=== PATIENT | male | born 1940 | race Caucasian/White ===

== ENCOUNTER 2024-01-03 17:31 | Outpatient (CLI) | payer MEDICARE, BC, MEDICAID, SELFPAY | END 2024-01-03 17:32 | disposition home or self-care (01) | PROVIDERS: Visit Provider Emergency Medicine | DX: R53.1 Weakness (principal) | CPT/HCPCS: A0425; A0429 ==

== ENCOUNTER 2024-01-03 18:04 | Observation (INO) | payer MEDICARE, BC, SELFPAY ==
[2024-01-03] VITALS (24 sets, daily range): BP systolic 140–185; BP diastolic 64–80; PULSE 78–93; RESP 16–20; TEMP 37.4–37.6; O2SAT 89–97; BMI 38.0
--- NOTE | 2024-01-03 18:33 | CRLHL7_ITS ---
For Patients: As a result of the Century Cures Act, medical imaging exams and procedure reports are released immediately into your electronic medical record. You may view this report before your referring provider. If you have questions, please contact your health care provider. INDICATION: Shortness of breath and cough. FINDINGS: There is mild cardiac enlargement. The lungs are clear. The pulmonary vasculature and pleural surfaces appear normal. The bony thorax appears intact. IMPRESSION: Mild cardiac enlargement. Dictated by Griffin Ribera MD @ 01/03/2024 8:30:31 PM (Electronically Signed)
--- NOTE | 2024-01-03 18:33 | CRLHL7_ITS ---
For Patients: As a result of the Century Cures Act, medical imaging exams and procedure reports are released immediately into your electronic medical record. You may view this report before your referring provider. If you have questions, please contact your health care provider. INDICATION: Fall. Weakness. TECHNIQUE: CT head without contrast. COMPARISON: None. FINDINGS: There is dilatation of the lateral and 3rd ventricles, consistent with hydrocephalus. No definite dilatation of the 4th ventricle. Mild ill-defined low-attenuation in the periventricular and subcortical white matter. No CT evidence of acute hemorrhage or infarction. No midline shift. No subdural fluid collection. Intracranial atherosclerosis. CSF density in the posterior fossa may represent normal variation or arachnoid cyst. Bone windows show no acute calvarial fracture. Mild mucosal thickening of the maxillary and ethmoid sinuses. Lobular soft tissue in the right superior lateral extraconal orbit measures approximately 21 x 5 mm on image 22 of series 3. IMPRESSION: 1. No acute intracranial hemorrhage or midline shift. 2. 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 Otherwise, no definite abnormality to suggest cause for this finding on unenhanced CT. 3. Lobular soft tissue lesion in the right superior lateral extraconal orbit. Benign and malignant etiologies such as lymphoma are differential considerations. 4. MRI of the brain without and with contrast is recommended to further evaluate the above findings. Dictated by Khalif Boyd MD @ 01/03/2024 7:17:16 PM Please note that all CT scans at this facility use dose modulation, iterative reconstruction, and/or weight-based dosing when appropriate to reduce radiation dose to as low as reasonably achievable. Dictated by: Khalif Boyd MD @ 01/03/2024 19:17:35 (Electronically Signed)
--- NOTE | 2024-01-03 18:36 | ED_ITS ---
HPI - General Adult General Date Seen: 01/03/24 Chief complaint: Weakness Stated complaint: ambulance Time Seen by Provider: 01/03/24 18:16 History of Present Illness HPI narrative: This is a pleasant 83-year-old gentleman brought to the ER today by EMS for evaluation of a weakness and a ground level fall History from paramedics is that he generally lives independently in an apartment attached to the [address] [place] [address]. It sounds like he normally cares for himself and does not get any assisted living services. They say that [place] was [place] still [place] today. He apparently was getting out of his car and got weak and lowered himself to the ground because his legs were giving out. The they think that the patient did not hit his head when he fell. He had apparently been laying in the parking lot for about 45 minutes until a bystander saw him and called 911 for lift assist. Paramedics note that he was weak but had no focal deficits. He had no complaints. They say that he is alert and oriented x4. Blood sugar was normal. They transported him here to the ER. History from the patient seems little bit limited. He is very pleasant and is oriented to person place and day but seems like an unreliable historian. For instance when I ask him what he had for lunch he has a long thoughtful pause, and then says in a questioning tone of voice, ?ham, I think... Mashed potatoes he is able to tell me that he has arthritis in his knees and is having pain in his legs. Not from falling but has been longstanding. He is also able to tell me that he has trouble with urination that he has been on medicines for years but they do not really help. He is able to tell me that he went to [place] ?to his place? today to visit his brother and his sister. He apparently had lunch at his sister's house. He drove himself from [place] still back to [place]. He got weak getting out of his car. He is also able to tell me that he has had ?a stuffy nose, possibly allergies? for the past few days but can not really say when it started. Probably this weekend but maybe as long goes last weekend. In addition to stuffy nose he has had a bit of a cough. He does not think he has been producing sputum. No chest pain. He does not feel short of breath. He has had no nausea or vomiting. When I asked, he does recall that ?come to think it it, I have been having diarrhea. ? He thinks urination has been at its baseline. It sounds like he has trouble with urinary hesitancy. No rashes. He does not think he hit his head. No headache. He does have a low-grade temperature of 99.4?. He was not aware that he was running a fever.. Related Data Home Medications ?Medication ?Instructions ?Recorded ?Confirmed aspirin 81 mg capsule 81 mg PO DAILY 01/03/24 01/03/24 finasteride 5 mg tablet 5 mg PO DAILY 01/03/24 01/03/24 hydrochlorothiazide 25 mg tablet 25 mg PO DAILY 01/03/24 01/03/24 losartan 100 mg tablet 100 mg PO DAILY 01/03/24 01/03/24 omeprazole 20 mg capsule,delayed 20 mg PO DAILY 01/03/24 01/03/24 release pravastatin 20 mg tablet 20 mg PO DAILY 01/03/24 01/03/24 tamsulosin 0.4 mg capsule 0.8 mg PO DAILY 01/03/24 01/03/24 Previous Rx's ?Medication ?Instructions ?Recorded nirmatrelvir 150 mg-ritonavir 100 See Rx Instructions PO .COMPLEX 01/04/24 mg tablets in a dose pack #20 ea (Paxlovid) Allergies Allergy/AdvReac Type Severity Reaction Status Date / Time No Known Drug Allergies Allergy Verified 01/03/24 18:17 [facility] Medical History (Updated 01/04/24 @ 15:45 by Georges Kathleen MD) CKD (chronic kidney disease) ?N18.9 - Chronic kidney disease, unspecified (ICD-10) 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 ?S68.119A - Complete traumatic metacarpophalangeal amputation of unspecified finger, initial encounter (ICD-10) Primary osteoarthritis of right knee ?M17.11 - Unilateral primary osteoarthritis, right knee (ICD-10) GERD (gastroesophageal reflux disease) ?K21.9 - Gastro-esophageal reflux disease without esophagitis (ICD-10) Hypertension ?I10 - Essential (primary) hypertension (ICD-10) Adenomatous colon polyp ?D12.6 - Benign neoplasm of colon, unspecified (ICD-10) Mixed hyperlipidemia ?E78.2 - Mixed hyperlipidemia (ICD-10) BPH (benign prostatic hyperplasia) ?N40.0 - Benign prostatic hyperplasia without lower urinary tract symptoms (ICD-10) 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, unspecified site (ICD-10) Surgical History (Updated 01/03/24 @ 23:23 by Mellissa Painting MD) Hx of colonoscopy ?Z98.890 - Other specified postprocedural states (ICD-10) Family History (Updated 01/03/24 @ 23:25 by Mellissa Painting MD) Sister Asthma Ischemic bowel disease Mother High blood pressure Father Stroke Social History What is your current living situation?: I presently have a place to live Problems where you live: mold Problems where you live details: Pt reports my sink used to have mold under it but they covered it up with linoleum In the past 12 months, utilities in danger of being shut off: no In past 12 months, lack of transportation kept you from medical appts, meetings, work, or getting things needed for daily living: no In the past 12 mos, have been you worried that your food would run out before you had money to buy more?: never true In the past 12 mos, the food you bought just didn't last and you didn't have money to buy more?: never true Highest level of school completed/degree received: high school graduate Smoking Status: Never smoker Second hand tobacco smoke exposure: Yes How often do you have a drink containing alcohol: never AUDIT-C Alcohol total score: 0 Non-prescribed substance use: denies use Caffeine: Yes (Coffee) How often does anyone, including family, friends and others, physically hurt you : never How often does anyone, including family, friends and others, insult or talk down to you: never How often does anyone, including family, friends and others, threaten you with harm: never How often does anyone, including family, friends and others, scream or curse at you: never service: Yes Exam Narrative: Exam Narrative: Primary Survey: A- patent. Speaking clearly. Phonation normal. No stridor. B- breathing easily. Lung sounds clear and equal. Oxygen saturation normal on room air C- no active bleeding. Blood pressure stable. Symmetric pulses and cap refill in 4 extremities. D- alert and oriented x3, but is not a very detailed historian. Seems a little bit vague about chronology and all of his symptoms.. GCS 15. No focal deficits. Constitutional: Appears well-developed and well-nourished. Alert. Conversant. Generalized weakness. Requires assist of 2 people for him to stand at the bedside and pivot into his bed. HENT: Head: Atraumatic. Nose: Nose normal. Mouth/Throat: Oral mucosa is clear and moist. no trismus. Pharynx normal. Tonsils symmetric. No tonsillar enlargement, erythema, or exudate. Eyes: Conjunctivae normal. EOM normal. Pupils equal, round, and reactive to light. No scleral icterus. Neck: Normal range of motion. Neck supple. No tracheal deviation present. Cardiovascular: Normal rate, regular rhythm. No gallop. No friction rub. No murmur heard. Symmetric radial artery pulses Pulmonary/Chest: Effort normal. No stridor. No respiratory distress. No wheezes. No rales. No rhonchi . No tenderness. Abdominal: Soft. No distension. No mass. No tenderness. No rebound. No guarding. Musculoskeletal: RUE: Normal range of motion. No tenderness. No deformity LUE: Normal range of motion. No tenderness. No deformity RLE: Normal range of motion. No edema. No tenderness. No deformity LLE: Normal range of motion. No edema. No tenderness. No deformity Lymph: No cervical adenopathy. Neurological: Alert and oriented to person, place, and time. Normal strength. CN II-VII intact. No sensory deficit. GCS eye subscore is 4. GCS verbal subscore is 5. GCS motor subscore is 6. Normal coordination Skin: Skin is warm and dry. No rash noted. No pallor. Normal capillary refill. Psychiatric: Normal mood. Normal affect. Const: Vital Signs, click to edit/add: Vital Signs - 24 hr 01/03/24 18:17 01/03/24 18:23 01/03/24 18:30 Temperature 99.4 F Pulse Rate 93 93 Pulse Rate [Pulse Oximeter] 92 Respiratory Rate 16 Blood Pressure Blood Pressure [Ri ght Upper Arm] 160/72 H Pulse Oximetry 96 93 95 Oxygen Delivery Me thod Room Air 01/03/24 18:32 01/03/24 19:07 01/03/24 19:15 Temperature Pulse Rate 92 86 92 Pulse Rate [Pulse Oximeter] Respiratory Rate Blood Pressure 140/66 H Blood Pressure [Ri ght Upper Arm] Pulse Oximetry 94 94 92 Oxygen Delivery Me thod 01/03/24 19:30 01/03/24 19:31 01/03/24 19:51 Temperature Pulse Rate 86 89 82 Pulse Rate [Pulse Oximeter] Respiratory Rate Blood Pressure 145/72 H Blood Pressure [Ri ght Upper Arm] Pulse Oximetry 95 93 96 Oxygen Delivery Me thod 01/03/24 20:00 01/03/24 20:02 01/03/24 20:15 Temperature Pulse Rate 81 80 85 Pulse Rate [Pulse Oximeter] Respiratory Rate Blood Pressure 156/64 H Blood Pressure [Ri ght Upper Arm] Pulse Oximetry 93 92 89 Oxygen Delivery Me thod 01/03/24 20:30 01/03/24 20:32 01/03/24 20:45 Temperature Pulse Rate 83 81 88 Pulse Rate [Pulse Oximeter] Respiratory Rate Blood Pressure 154/69 H Blood Pressure [Ri ght Upper Arm] Pulse Oximetry 91 91 96 Oxygen Delivery Me thod 01/03/24 21:00 01/03/24 21:02 01/03/24 21:15 Temperature Pulse Rate 79 81 78 Pulse Rate [Pulse Oximeter] Respiratory Rate Blood Pressure 172/74 H Blood Pressure [Ri ght Upper Arm] Pulse Oximetry 96 95 94 Oxygen Delivery Me thod 01/03/24 21:42 01/03/24 21:45 01/03/24 22:02 Temperature Pulse Rate 84 89 Pulse Rate [Pulse Oximeter] Respiratory Rate Blood Pressure 185/80 H Blood Pressure [Ri ght Upper Arm] Pulse Oximetry 96 95 Oxygen Delivery Me thod Course Vital Signs Vital signs: Initial Vital Signs Temperature 99.4 F 01/03/24 18:17 Temperature Source Temporal Artery Scan 01/03/24 18:17 Pulse Rate 92 01/03/24 18:17 Respiratory Rate 16 01/03/24 18:17 Blood Pressure 160/72 H 01/03/24 18:17 Blood Pressure Mean 101 01/03/24 18:17 Blood Pressure Position High-Fowlers 01/03/24 18:17 Pulse Oximetry 96 01/03/24 18:17 Oxygen Delivery Method Room Air 01/03/24 18:17 Vital Signs Temperature 99.4 F 01/03/24 18:17 Pulse Rate 92 01/03/24 18:17 Respiratory Rate 16 01/03/24 18:17 Blood Pressure 160/72 H 01/03/24 18:17 Pulse Oximetry 96 01/03/24 18:17 Oxygen Delivery Method Room Air 01/03/24 18:17 Temperature 98.4 F 01/05/24 03:00 Pulse Rate 57 L 01/05/24 03:00 Respiratory Rate 18 01/05/24 03:00 Blood Pressure 149/73 H 01/05/24 03:00 Pulse Oximetry 96 01/05/24 03:00 Oxygen Delivery Method Room Air 01/05/24 03:00 Medications Administered Medications: Generic Name Dose Route Start Last Admin Trade Name Freq PRN Reason Stop Dose Admin Acetaminophen 975 mg 01/03/24 23:05 01/04/24 21:06 Acetaminophen 325 Mg Tablet PO 975 mg Q6H PRN Administration pain or fever Enoxaparin Sodium 40 mg 01/04/24 21:00 01/04/24 21:07 Enoxaparin 40 Mg/0.4 Ml Inj SUBCUT 40 mg HS FELIX Administration Nirmatrelvir/Ritonavir 2 tab 01/04/24 14:00 01/04/24 21:08 Nirmatrelvir/Ritonavir Dosepak PO 01/08/24 21:01 2 tab BID FELIX Administration Sodium Chloride 5 ml 01/04/24 09:00 01/04/24 21:08 Sodium Chloride 0.9 % (Flush) 10 Ml Syringe IVF 5 ml BID FELIX Administration Discontinued Medications Generic Name Dose Route Start Last Admin Trade Name Freq PRN Reason Stop Dose Admin Sodium Chloride 1,000 mls @ 1,000 mls/hr 01/03/24 18:45 01/03/24 20:48 0.9 % Sodium Chloride 1000 Ml IV 01/03/24 19:44 Infused .Q1H FELIX Infusion Lactated Ringer's 1,000 ml 01/03/24 20:00 01/03/24 20:50 Lactated Ringers 1000 Ml IV 01/03/24 20:01 1,000 ml ONCE ONE Administration Medical Decision Making MDM Narrative Medical decision making narrative: This is a pleasant 83-year-old gentleman brought to the ER today by EMS for evaluation of generalized, nonfocal weakness associated with a ground level fall. Patient may also be mildly confused. These are thought to be acute changes because he normally lives alone independently. He was able to drive in his own vehicle up the [place] today to visit his brother. After he got back he was apparently week getting out of his vehicle and fell to the ground. 1. Trauma. Patient says he was weak and does not faint. He does not think he has on the ground. However he does seem mildly confused. Head CT is fortunately negative for any acute traumatic injury. C-spine CT also negative. He is not having any back or spine tenderness, pelvic tenderness or hip tenderness. 2. Neuro. He does seem mildly confused. No focal deficits. Head CT negative. Blood sugar normal. Suspect confusion is probably related to his COVID infection and fever. CT scan does show evidence for hydrocephalus. Unknown if this is acute or chronic, but would suspect chronic. He is not having any headache. He will be admitted to the hospitalist did treat for coronavirus and monitor. If mental status not improving will require neurology/neurosurgery consult for the hydrocephalus. 3. Infectious disease. Patient does have a low-grade fever. Suspect infection as a cause for his weakness and confusion. Urinalysis is normal. Chest x-ray negative for pneumonia. No evidence for skin infection. No abdominal pain to suggest intra-abdominal infection such as appendicitis or cholecystitis. He does have recent cough, nasal congestion. He is positive for coronavirus. We believe his symptoms started about 2 days ago on Thursday which would leave him in the window to start on Paxlovid. Fortunately at this point he is not hypoxic to require steroids for coronavirus. I would like to start the patient on Paxlovid, not seeing any chondral can not indication on my workup so far. However the patient would need a family member to go to the pharmacy to pick it up for him. We attempted to contact his brother Franky, at the listed phone number, but that number is disconnected. Discussed this with the patient. He says he has contact information for his o ther relatives in his cellphone, but he the battery did is dad or the phone was broken in his fall so is not able to get any other information. Nurses will work on getting family contact information for the patient. 4. Cardiac-with his fall consider possible cardiac event. EKG shows normal sinus rhythm. No ischemia. Troponin negative. Unlikely to have been an acute cardiac arrhythmia. 5. ENT. Head CT scan shows a soft tissue mass in the patient's sinus. Will need outpatient ENT follow-up and or further workup inpatient with MR imaging (as per Radiology recommendation) for further evaluation. Patient will be admitted to the hospitalist service, Dr. Painting accepting. Lab Data Labs: Lab Results 01/03/24 01/03/24 Range/Units 19:21 20:27 WBC 10.59 (4.50-11.00) K/uL RBC 3.85 L (4.30-5.90) m/uL Hgb 11.8 L (13.5-17.5) gm/dL Hct 36.5 L (37.0-53.0) % MCV 95 (80-100) fL MCH 31 (26-34) pg MCHC 32 (32-36) gm/dL RDW Coeff of Joyce 13.1 (11.5-15.5) % Plt Count 163 (140-440) K/uL Neut % (Auto) 79.9 H (42.0-72.0) % Lymph % (Auto) 7.8 L (20-44) % [place] % (Auto) 10.9 (0.0-11.0) % Eos % (Auto) 0.8 (0.0-7.0) % Baso % (Auto) 0.2 (0.0-3.0) % Neut # (Auto) 8.50 H (1.7-7.0) K/uL Lymph # (Auto) 0.80 L (0.90-2.90) K/uL [place] # (Auto) 1.20 H (0.00-0.90) K/UL Eos # (Auto) 0.09 (0.00-0.50) K/uL Baso # (Auto) 0.02 (0.00-0.30) K/uL Abs Immat Gran (auto) 0.04 (0.00-0.30) K/uL Imm/Tot Granulo (auto) 0.4 % Sodium 138 (135-149) mmol/L Potassium 4.7 (3.6-5.1) mmol/L Chloride 106 (96-114) mmol/L Carbon Dioxide 26 (20-32) mmol/L Anion Gap 6 L (7-15) mEq/L BUN 29 (7-30) mg/dL Creatinine 1.3 (0.5-1.5) mg/dL Estimated Creat Clear 48.91 Estimated GFR 55 ml/min Glucose 114 (60-115) mg/dL Lactate 1.5 (0.5-1.9) mmol/L Calcium 9.9 (8.4-10.6) mg/dL Troponin I < 0.01 L (0.01-0.04) ng/mL Urine Color Yellow (Yellow) Urine Appearance Clear (Clear) Urine pH 6.5 (5.0-8.5) Ur Specific [place] 1.025 (1.000-1.030) Urine Protein Negative (Negative) Urine Glucose (UA) Negative (Negative) Urine Ketones Negative (Negative) Urine Blood Trace-intact A (Negative) Urine Nitrite Negative (Negative) Urine Bilirubin Negative (Negative) Urine Urobilinogen 1.0 (0.2-1.0) Ur Leukocyte Esterase Negative (Negative) Urine RBC 0-2 (0-2) Urine WBC 0-2 (0-5) Ur Squamous Epith Cells None (None-Few) Urine Bacteria None (None) SARS-CoV-2 (PCR) POSITIVE SARS-CoV-2 A (Negative) Influenza Type A (PCR) Negative PCR FLU A (Negative) Influenza Type B (PCR) Negative PCR FLU B (Negative) RSV (PCR) Negative PCR RSV (Negative) Imaging Data CT scan - head: Attestation: I have reviewed the pertinent imaging results. Radiologist's impression: IMPRESSION: 1. No acute intracranial hemorrhage or midline shift. 2. 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 Otherwise, no definite abnormality to suggest cause for this finding on unenhanced CT. 3. Lobular soft tissue lesion in the right superior lateral extraconal orbit. Benign and malignant etiologies such as lymphoma are differential considerations. 4. MRI of the brain without and with contrast is recommended to further evaluate the above findings. CT C spine: Attestation: I have reviewed the pertinent imaging results. Radiologist's impression: IMPRESSION: 1. No acute fracture or traumatic subluxation of the cervical spine. 2. Multilevel degenerative spondylosis. Chest x-ray: Attestation: I have reviewed the pertinent imaging results. Radiologist's impression: IMPRESSION: Mild cardiac enlargement. ECG Data Attestation: I personally reviewed and interpreted this ECG as follows: Interpretation: Normal sinus rhythm Rate: 82 TN: 186 QRS axis: Normal axis ST segment/T wave: No ST segment elevation or depression. QTc: 397 Discharge Plan Discharge Clinical Impression: COVID-19, Weakness, Fall, Acute upper back pain Patient Disposition: Admitted As Observation
[2024-01-03 19:29] LABS: Lactate* 1.5 mmol/L (0.5-1.9)
[2024-01-03 19:32] LABS: Basophils Absolute Auto 0.02 K/uL (0.00-0.30); Basophils Percent Auto 0.2 % (0.0-3.0); Eosinophils Absolute Auto 0.09 K/uL (0.00-0.50); Eosinophils Percent Auto 0.8 % (0.0-7.0); Hematocrit 36.5 % (37.0-53.0); Hemoglobin* 11.8 gm/dL (13.5-17.5); Immature Granulocytes Abs Auto 0.04 K/uL (0.00-0.30); Immature Granulocytes Pct Auto 0.4 %; Lymphocytes Percent Auto 7.8 % (20-44); Mean Corpuscular HGB Conc 32 gm/dL (32-36); Mean Corpuscular Hemoglobin 31 pg (26-34); Mean Corpuscular Volume 95 fL (80-100); Monocytes Percent Auto 10.9 % (0.0-11.0); Neutrophils Percent Auto 79.9 % (42.0-72.0); Platelet Count* 163 K/uL (140-440); RDW Coefficient of Variation % 13.1 % (11.5-15.5); Red Blood Count 3.85 m/uL (4.30-5.90); White Blood Count* 10.59 K/uL (4.50-11.00)
[2024-01-03] MEDS: 0.9 % SODIUM CHLORIDE 1000 ml 1,000 ML IV (19:39)
[2024-01-03 19:40] LABS: Slide Review Reflex No
[2024-01-03 19:44] LABS: Chloride* 106 mmol/L (96-114); Potassium* 4.7 mmol/L (3.6-5.1); Sodium* 138 mmol/L (135-149)
[2024-01-03 19:47] LABS: Anion Gap 6 mEq/L (7-15); Blood Urea Nitrogen* 29 mg/dL (7-30); Carbon Dioxide* 26 mmol/L (20-32); Creatinine* 1.3 mg/dL (0.5-1.5); Est. Creatinine Clearance* 48.91; Estimated Glomerular Filt Rate 55 ml/min; Glucose* 114 mg/dL (60-115)
[2024-01-03 19:48] LABS: Calcium* 9.9 mg/dL (8.4-10.6)
[2024-01-03 20:01] LABS: Troponin I* < 0.01 ng/mL (0.01-0.04)
[2024-01-03 20:12] LABS: PCR FLU A Negative PCR FLU A (Negative); PCR FLU B Negative PCR FLU B (Negative); PCR RSV Negative PCR RSV (Negative); SARS PCR* POSITIVE SARS-CoV-2 (Negative)
[2024-01-03 20:35] LABS: Appearance Urine Clear (Clear); Bilirubin Urine Negative (Negative); Blood Urine Trace-intact (Negative); Color Urine Yellow (Yellow); Glucose Urine Negative (Negative); Ketones Urine Negative (Negative); Leukocyte Esterase Urine Negative (Negative); Nitrite Urine Negative (Negative); Protein Urine Negative (Negative); Specific Gravity Urine 1.025 (1.000-1.030); pH Urine 6.5 (5.0-8.5)
[2024-01-03] MEDS: LACTATED RINGERS 1000 ML IV (20:50)
--- NOTE | 2024-01-03 20:58 | CRLHL7_ITS ---
For Patients: As a result of the Cures Act, medical imaging exams and procedure reports are released immediately into your electronic medical record. You may view this report before your referring provider. If you have questions, please contact your health care provider. INDICATION: Trauma, fall. Neck pain. TECHNIQUE: CT cervical spine without contrast. COMPARISON: None. FINDINGS: Vertebrae: Straightening of the normal cervical lordosis, which may be due to muscle spasm or positioning. There are no fractures or suspicious bony lesions. Discs and facet joints: There are diffuse degenerative changes in the disc spaces and facet joints. Extraspinal findings: Paraspinous soft tissues are unremarkable. IMPRESSION: 1. No acute fracture or traumatic subluxation of the cervical spine. 2. Multilevel degenerative spondylosis. Please note that all CT scans at this facility use dose modulation, iterative reconstruction, and/or weight-based dosing when appropriate to reduce radiation dose to as low as reasonably achievable. Dictated by Jovon Camargo MD @ 01/03/2024 9:52:54 PM (Electronically Signed)
[2024-01-03 21:29] LABS: RBC Urine 0-2 (0-2); WBC Urine 0-2 (0-5)
--- NOTE | 2024-01-03 22:51 | PM.IMHP1 ---
Hospitalist- H&P: HPI History of Present Illness Time Seen by Provider: 22:53 Date Seen: 01/03/24 Chief complaint: ambulance Narrative: Aidan Singh is a 83 year old male who lives independently at [address] [facility] [address] and has a history of hypertension, chronic kidney disease stage 3, and hyperlipidemia who felt weak getting out of his car and lowered himself to the ground and was unable to get up. Overnight he did not sleep very well and had a very runny nose. Today he has felt very tired and fatigued, which he attributed to not sleeping well last night. He also started coughing today. He and his brother went to visit their sister who is currently at [facility]. We earlier this afternoon and then he drove himself back home. When he got to the [place] his apartment he felt very weak getting out of the car and started to falls, so he gently lowered himself to the ground. He denies any loss of consciousness the, head or neck trauma. He laid on the pavement for a little while until someone was passing by and he got their attention. He got a liter of IV fluids in the emergency department and his COVID swab was positive. Denies loss of appetite, fever, headache, body aches, sore throat, shortness breath or chest pain. He denies any sick contacts. 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 ?S68.119A - Complete traumatic metacarpophalangeal amputation of unspecified finger, initial encounter (ICD-10) Primary osteoarthritis of right knee ?M17.11 - Unilateral primary osteoarthritis, right knee (ICD-10) GERD (gastroesophageal reflux disease) ?K21.9 - Gastro-esophageal reflux disease without esophagitis (ICD-10) Hypertension ?I10 - Essential (primary) hypertension (ICD-10) Adenomatous colon polyp ?D12.6 - Benign neoplasm of colon, unspecified (ICD-10) Mixed hyperlipidemia ?E78.2 - Mixed hyperlipidemia (ICD-10) BPH (benign prostatic hyperplasia) ?N40.0 - Benign prostatic hyperplasia without lower urinary tract symptoms (ICD-10) 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, unspecified site (ICD-10) Surgical History (Updated 01/03/24 @ 23:23 by Mellissa Painting MD) Hx of colonoscopy ?Z98.890 - Other specified postprocedural states (ICD-10) Family History (Updated 01/03/24 @ 23:25 by Mellissa Painting MD) Sister Asthma Ischemic bowel disease Mother High blood pressure Father Stroke Social History What is your current living situation?: I presently have a place to live Problems where you live: mold Problems where you live details: Pt reports my sink used to have mold under it but they covered it up with linoleum In the past 12 months, utilities in danger of being shut off: no In past 12 months, lack of transportation kept you from medical appts, meetings, work, or getting things needed for daily living: no In the past 12 mos, have been you worried that your food would run out before you had money to buy more?: never true In the past 12 mos, the food you bought just didn't last and you didn't have money to buy more?: never true Highest level of school completed/degree received: high school graduate Smoking Status: Never smoker Second hand tobacco smoke exposure: Yes How often do you have a drink containing alcohol: never AUDIT-C Alcohol total score: 0 Non-prescribed substance use: denies use Caffeine: Yes (Coffee) How often does anyone, including family, friends and others, physically hurt you: never How often does anyone, including family, friends and others, insult or talk down to you: never How often does anyone, including family, friends and others, threaten you with harm: never How often does anyone, including family, friends and others, scream or curse at you: never service: Yes Meds Home Medications and Allergies Home Medications ?Medication ?Instructions ?Recorded ?Confirmed ?Type aspirin 81 mg capsule 81 mg PO DAILY 01/03/24 01/03/24 History finasteride 5 mg tablet 5 mg PO DAILY 01/03/24 01/03/24 History hydrochlorothiazide 25 mg tablet 25 mg PO DAILY 01/03/24 01/03/24 History losartan 100 mg tablet 100 mg PO DAILY 01/03/24 01/03/24 History omeprazole 20 mg capsule,delayed 20 mg PO DAILY 01/03/24 01/03/24 History release pravastatin 20 mg tablet 20 mg PO DAILY 01/03/24 01/03/24 History tamsulosin 0.4 mg capsule 0.8 mg PO DAILY 01/03/24 01/03/24 History Allergies Allergy/AdvReac Type Severity Reaction Status Date / Time No Known Drug Allergies Allergy Verified 01/03/24 18:17 Exam Narrative: Exam Narrative: General: No acute distress. Awake alert oriented x3. HEENT: Normocephalic atraumatic, pupils equally round and reactive to light and accommodation. Oropharynx clear. Mucous membranes are moist. No cervical lymphadenopathy, thyromegaly or carotid bruits. No JVD. Cardiovascular: Regular rate and rhythm. No murmurs, gallops, or rubs. Chest: No increased work of breathing. Clear to auscultation bilaterally. No crackles or wheezes. Abdomen: Bowel sounds present. Soft, nondistended, nontender. No hepatosplenomegaly or masses. Extremities: No edema, no cyanosis or clubbing. Skin: Slightly flushed in the face. No jaundice, no pallor, no rashes. Neuro: There are no focal deficits. Romberg is negative. No facial asymmetry. Tongue is midline. Vision is grossly intact. Strength is 5/5 in all 4 extremities. Const: Vital Signs, click to edit/add: Vital Signs - 24 hr 01/03/24 18:17 01/03/24 18:23 01/03/24 18:30 Temperature 99.4 F Pulse Rate 93 93 Pulse Rate [Left P ulse Oximeter] Pulse Rate [Pulse Oximeter] 92 Respiratory Rate 16 Blood Pressure Blood Pressure [Le ft Arm] Blood Pressure [Ri ght Upper Arm] 160/72 H Pulse Oximetry 96 93 95 Oxygen Delivery Me thod Room Air 01/03/24 18:32 01/03/24 19:07 01/03/24 19:15 Temperature Pulse Rate 92 86 92 Pulse Rate [Left P ulse Oximeter] Pulse Rate [Pulse Oximeter] Respiratory Rate Blood Pressure 140/66 H Blood Pressure [Le ft Arm] Blood Pressure [Ri ght Upper Arm] Pulse Oximetry 94 94 92 Oxygen Delivery Me thod 01/03/24 19:30 01/03/24 19:31 01/03/24 19:51 Temperature Pulse Rate 86 89 82 Pulse Rate [Left P ulse Oximeter] Pulse Rate [Pulse Oximeter] Respiratory Rate Blood Pressure 145/72 H Blood Pressure [Le ft Arm] Blood Pressure [Ri ght Upper Arm] Pulse Oximetry 95 93 96 Oxygen Delivery Me thod 01/03/24 20:00 01/03/24 20:02 01/03/24 20:15 Temperature Pulse Rate 81 80 85 Pulse Rate [Left P ulse Oximeter] Pulse Rate [Pulse Oximeter] Respiratory Rate Blood Pressure 156/64 H Blood Pressure [Le ft Arm] Blood Pressure [Ri ght Upper Arm] Pulse Oximetry 93 92 89 Oxygen Delivery Me thod 01/03/24 20:30 01/03/24 20:32 01/03/24 20:45 Temperature Pulse Rate 83 81 88 Pulse Rate [Left P ulse Oximeter] Pulse Rate [Pulse Oximeter] Respiratory Rate Blood Pressure 154/69 H Blood Pressure [Le ft Arm] Blood Pressure [Ri ght Upper Arm] Pulse Oximetry 91 91 96 Oxygen Delivery Me thod 01/03/24 21:00 01/03/24 21:02 01/03/24 21:15 Temperature Pulse Rate 79 81 78 Pulse Rate [Left P ulse Oximeter] Pulse Rate [Pulse Oximeter] Respiratory Rate Blood Pressure 172/74 H Blood Pressure [Le ft Arm] Blood Pressure [Ri ght Upper Arm] Pulse Oximetry 96 95 94 Oxygen Delivery Me thod 01/03/24 21:42 01/03/24 21:45 01/03/24 22:02 Temperature Pulse Rate 84 89 Pulse Rate [Left P ulse Oximeter] Pulse Rate [Pulse Oximeter] Respiratory Rate Blood Pressure 185/80 H Blood Pressure [Le ft Arm] Blood Pressure [Ri ght Upper Arm] Pulse Oximetry 96 95 Oxygen Delivery Me thod 01/03/24 22:30 Temperature 99.7 F H Pulse Rate Pulse Rate [Left P ulse Oximeter] 85 Pulse Rate [Pulse Oximeter] Respiratory Rate 20 Blood Pressure Blood Pressure [Le ft Arm] 150/79 H Blood Pressure [Ri ght Upper Arm] Pulse Oximetry 97 Oxygen Delivery Me thod Room Air Hospitalist - H&P: Result Labs Labs: Short CBC 01/03/24 Range/Units 19:21 WBC 10.59 (4.50-11.00) K/uL Hgb 11.8 L (13.5-17.5) gm/dL Hct 36.5 L (37.0-53.0) % Plt Count 163 (140-440) K/uL BMP 01/03/24 19:21 Sodium 138 Potassium 4.7 Chloride 106 Carbon Dioxide 26 BUN 29 Creatinine 1.3 Glucose 114 Calcium 9.9 Cardiac Enzymes 01/03/24 Range/Units 19:21 Troponin I < 0.01 L (0.01-0.04) ng/mL Urine 01/03/24 Range/Units 20:27 Urine Color Yellow (Yellow) Urine Appearance Clear (Clear) Urine pH 6.5 (5.0-8.5) Ur Specific [place] 1.025 (1.000-1.030) Urine Protein Negative (Negative) Urine Glucose (UA) Negative (Negative) 01/03/2024 EKG: Normal sinus rhythm, 82 beats per minute, normal EKG. Ordering Physician: Neal Jay M.D. Date of Service: 01/03/24 Procedure(s): XR chest 2V Accession Number(s): [id number] cc: Neal Jay M.D.; Provider,Not a Local~ For Patients: As a result of the Cures Act, medical imaging exams and procedure reports are released immediately into your electronic medical record. You may view this report before your referring provider. If you have questions, please contact your health care provider. INDICATION: Shortness of breath and cough. FINDINGS: There is mild cardiac enlargement. The lungs are clear. The pulmonary vasculature and pleural surfaces appear normal. The bony thorax appears intact. IMPRESSION: Mild cardiac enlargement. Dictated by Griffin Ribera MD @ 01/03/2024 8:30:31 PM (Electronically Signed) Ordering Physician: Neal Jay M.D. Date of Service: 01/03/24 Procedure(s): CT head/brain wo con Accession Number(s): [id number] cc: Neal Jay M.D.; Provider,Not a Local~ For Patients: As a result of the Cures Act, medical imaging exams and procedure reports are released immediately into your electronic medical record. You may view this report before your referring provider. If you have questions, please contact your health care provider. INDICATION: Fall. Weakness. TECHNIQUE: CT head without contrast. COMPARISON: None. FINDINGS: There is dilatation of the lateral and 3rd ventricles, consistent with hydrocephalus. No definite dilatation of the 4th ventricle. Mild ill-defined low-attenuation in the periventricular and subcortical white matter. No CT evidence of acute hemorrhage or infarction. No midline shift. No subdural fluid collection. Intracranial atherosclerosis. CSF density in the posterior fossa may represent normal variation or arachnoid cyst. Bone windows show no acute calvarial fracture. Mild mucosal thickening of the maxillary and ethmoid sinuses. Lobular soft tissue in the right superior lateral extraconal orbit measures approximately 21 x 5 mm on image 22 of series 3. IMPRESSION: 1. No acute intracranial hemorrhage or midline shift. 2. 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 Otherwise, no definite abnormality to suggest cause for this finding on unenhanced CT. 3. Lobular soft tissue lesion in the right superior lateral extraconal orbit. Benign and malignant etiologies such as lymphoma are differential considerations. 4. MRI of the brain without and with contrast is recommended to further evaluate the above findings. Dictated by Khalif Boyd MD @ 01/03/2024 7:17:16 PM Please note that all CT scans at this facility use dose modulation, iterative reconstruction, and/or weight-based dosing when appropriate to reduce radiation dose to as low as reasonably achievable. Dictated by: Khalif Boyd MD @ 01/03/2024 19:17:35 (Electronically Signed) Ordering Physician: Neal Jay M.D. Date of Service: 01/03/24 Procedure(s): CT cervical spine wo con Accession Number(s): [id number] cc: Neal Jay M.D.; Provider,Not a Local~ For Patients: As a result of the 21st Century Cures Act, medical imaging exams and procedure reports are released immediately into your electronic medical record. You may view this report before your referring provider. If you have questions, please contact your health care provider. INDICATION: Trauma, fall. Neck pain. TECHNIQUE: CT cervical spine without contrast. COMPARISON: None. FINDINGS: Vertebrae: Straightening of the normal cervical lordosis, which may be due to muscle spasm or positioning. There are no fractures or suspicious bony lesions. Discs and facet joints: There are diffuse degenerative changes in the disc spaces and facet joints. Extraspinal findings: Paraspinous soft tissues are unremarkable. IMPRESSION: 1. No acute fracture or traumatic subluxation of the cervical spine. 2. Multilevel degenerative spondylosis. Please note that all CT scans at this facility use dose modulation, iterative reconstruction, and/or weight-based dosing when appropriate to reduce radiation dose to as low as reasonably achievable. Dictated by Jovon Camargo MD @ 01/03/2024 9:52:54 PM (Electronically Signed) Assessment and Plan Assessment and plan (1) COVID-19: Problem comment: - Date of onset unclear. Patient told ER he has had cough for 3-5 days, but he tells me all his symptoms started this afternoon. - Denies sick contacts, but visited his sister at [facility] today while ill, before he knew he had covid. - patient is aware that we do not have Paxlovid in our pharmacy and said his brother can pick it up for him at an outpatient pharmacy and bring it here. We have been unable to get a hold of his brother, Franky. Staff will attempt again in the morning. - No SOB or hypoxia. No need for steroids at this time. Status: Acute (2) Weakness: Problem comment: - Secondary to Covid - PT and OT to evaluate - Lives independently, alone Status: Acute (3) Fall: Problem comment: - Not painful at present. CT head, cspine negative for traumatic findings Status: Acute (4) CKD (chronic kidney disease): Problem comment: - stage 3, baseline Cr 1.1-1.2 - Patient got IVF in the ER. Recheck Cr in am. Status: Chronic (5) Hypertension: Problem comment: - Continue HCTZ, losartan Status: Chronic (6) Brain lesion: Problem comment: 01/03/24 CT head: lobular soft tissue lesion in the right superior lateral extraconal orbit. Benign and malignant etiologies such as lymphoma are differential considerations. MRI of the brain without and with contrast is recommended to further evaluate the above findings. 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 Otherwise, no definite abnormality to suggest cause for this finding on unenhanced CT. MRI of the brain without and with contrast is recommended to further evaluate the above findings. Status: Acute
[2024-01-04] VITALS (8 sets, daily range): BP systolic 128–178; BP diastolic 54–72; PULSE 62–72; RESP 18–20; TEMP 36.6–37.6; O2SAT 93–98
[2024-01-04] MEDS: ACETAMINOPHEN 325 MG TABLET 975 MG PO ×4 (00:08→21:06)
[2024-01-04 06:26] LABS: Basophils Absolute Auto 0.01 K/uL (0.00-0.30); Basophils Percent Auto 0.1 % (0.0-3.0); Eosinophils Absolute Auto 0.12 K/uL (0.00-0.50); Eosinophils Percent Auto 1.4 % (0.0-7.0); Hematocrit 34.9 % (37.0-53.0); Hemoglobin* 11.4 gm/dL (13.5-17.5); Immature Granulocytes Abs Auto 0.04 K/uL (0.00-0.30); Immature Granulocytes Pct Auto 0.5 %; Mean Corpuscular HGB Conc 33 gm/dL (32-36); Mean Corpuscular Hemoglobin 31 pg (26-34); Mean Corpuscular Volume 94 fL (80-100); Monocytes Percent Auto 13.4 % (0.0-11.0); Neutrophils Absolute Auto 5.82 K/uL (1.7-7.0); Neutrophils Percent Auto 69.6 % (42.0-72.0); Platelet Count* 150 K/uL (140-440); White Blood Count* 8.36 K/uL (4.50-11.00)
[2024-01-04 06:27] LABS: Slide Review Reflex No
[2024-01-04 06:37] LABS: Chloride* 106 mmol/L (96-114); Sodium* 137 mmol/L (135-149)
[2024-01-04 06:40] LABS: Anion Gap 6 mEq/L (7-15); Blood Urea Nitrogen* 23 mg/dL (7-30); Carbon Dioxide* 25 mmol/L (20-32); Creatinine* 1.1 mg/dL (0.5-1.5); Est. Creatinine Clearance* 57.81; Estimated Glomerular Filt Rate 67 ml/min; Glucose* 102 mg/dL (60-115)
[2024-01-04 06:41] LABS: Calcium* 9.7 mg/dL (8.4-10.6)
--- NOTE | 2024-01-04 06:41 | PC.NURSE ---
End of shift note: Pt noted to be alert & oriented x 4 upon assessment. PERRLA. IV in place to L AC and SL. Per ED, pt unable to ambulate and requires assist of 2-3 with pivot transferring. Unable to obtain bed weight as bed scale not working and pt unable to safely use standing scale due to weakness. Pt noted to have temp of 99.7 upon admission to med/surg unit. He was given PRN Tylenol to help reduce temp as well as treat c/o 6/10 back pain after pt?s fall being down for 45 minutes yesterday prior to arrival to ED. University Controller attempted to call pt?s brother Franky to provide update that pt has been admitted to hospital and request that Franky provide supply of Paxlovid from pharmacy on 01/03 though phone number on file noted to be disconnected when called. External catheter used overnight as pt is noted to have urinary frequency, incontinence and dribbling which was also noted by ED RN. Pt refused to have catheter placed in ED per ED RN report. Pt noted to have productive cough with clear sputum noted. He is also noted to have runny nose and nasal congestion. Pt has been on RA throughout the shift. He required assist of 4 staff to move from ED stretcher to bed. He is noted to be missing distal tip of his middle finger of L hand. Pt able to roll side to side in bed with some staff assistance. He reports he uses a walker with transferring/ambulation at baseline. Call light within reach.
[2024-01-04] MEDS: SODIUM CHLORIDE 0.9 % (FLUSH) 10 ML SYRINGE 5 ML IVF ×3 (08:54→21:08)
--- NOTE | 2024-01-04 12:36 | PC.SOCIAL ---
Received a call back from 3 [facility] retention manager and the only contact they have for pt. is his brother Franky at [phone]. Updated the charge nurse on the contact.
[2024-01-04] MEDS: NIRMATRELVIR/RITONAVIR DOSEPAK 2 TAB PO ×2 (14:31→21:08)
--- NOTE | 2024-01-04 15:07 | PC.NURSE ---
End of shift [id number]: Pt has been A&O, afebrile and VSS throughout the day. T-max 99.2. He is Ax1 with gait belt & rolling walker. Pt c/o chronic back pain which PRN Tylenol was given @1310 & provided adequate relief. Pt was attached to external male catheter this morning but has since been continent of B&B after this was removed. He denies any nausea or dizziness, tolerating a regular diet with adequate PO intake. PIV in left AC SL and C/D/I. Pt started on Paxlovid this afternoon. His brother, Franky, visited him for a short time this afternoon.
--- NOTE | 2024-01-04 15:39 | PM.IMPN1 ---
Progress Note: A&P Assessment and plan (1) COVID-19: Problem details: Uncertain onset of COVID infection probably 1 to 3 days prior to admission. Not hypoxic. Brother will bring in Paxlovid renal dose. Hold simvastatin and tamsulosin on Paxlovid and for 5 days afterwards Status: Acute (2) Weakness: Problem details: - Secondary to Covid - PT and OT to evaluate - Lives independently, alone Status: Acute (3) Fall: Problem details: No obvious serious injury. Reports some midthoracic pain today. He tells me this has been chronic prior to his fall. Status: Acute (4) CKD (chronic kidney disease): Problem details: - stage 3, baseline Cr 1.1-1.2 - Patient got IVF in the ER. Recheck Cr in am. Status: Chronic (5) Hypertension: Problem details: - Continue losartan at reduced dose. Resume normal blood pressure medicine when blood pressure improved and eating well. Status: Chronic (6) Brain lesion: Problem details: 01/03/24 CT head: lobular soft tissue lesion in the right superior lateral extraconal orbit. Benign and malignant etiologies such as lymphoma are differential considerations. MRI of the brain without and with contrast is recommended to further evaluate the above findings. 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 Otherwise, no definite abnormality to suggest cause for this finding on unenhanced CT. MRI of the brain without and with contrast is recommended to further evaluate the above findings. Status: Acute Plan Continue in-hospital for supportive cares pending resolution of COVID illness with associated weakness and disability. Time Spent With Patient Total time spent: Total time spent today is 55 minutes in evaluation management discussing with patient management of COVID and disability and abnormal imaging findings Subjective Date Seen: 01/04/24 Interval history: Aidan Singh is a 83 year old male who lives independently at [address] [facility] apartments and has a history of hypertension, chronic kidney disease stage 3, and hyperlipidemia who felt weak getting out of his car and lowered himself to the ground and was unable to get up. Overnight he did not sleep very well and had a very runny nose. Today he has felt very tired and fatigued, which he attributed to not sleeping well last night. He also started coughing today. He and his brother went to visit their sister who is currently at [facility]. We earlier this afternoon and then he drove himself back home. When he got to the [place] his apartment he felt very weak getting out of the car and started to falls, so he gently lowered himself to the ground. He denies any loss of consciousness the, head or neck trauma. He laid on the pavement for a little while until someone was passing by and he got their attention. He got a liter of IV fluids in the emergency department and his COVID swab was positive. Denies loss of appetite, fever, headache, body aches, sore throat, shortness breath or chest pain. He denies any sick contacts. January 03: Patient reports feeling significantly better today. He feels a little stronger. He reports his fever appears to be gone. Still has some cough and congestion. No shortness of breath. His appetite is improved and he is beginning to eat. Exam Narrative: Exam Narrative: He is alert and appears in no distress. He gives his own history with fairly good detail. Eyes normal. Oropharynx normal. Neck is supple without mass or adenopathy. Respirations are clear to auscultation. Cardiovascular: S1, S2, regular rate and rhythm. No murmur gallop or rub. Abdomen: Bowel sounds active. Abdomen is soft without tenderness or mass. Extremities without edema. Const: Vital Signs, click to edit/add: Vital Signs - 24 hr 01/03/24 18:17 01/03/24 18:23 01/03/24 18:30 Temperature 99.4 F Pulse Rate 93 93 Pulse Rate [Left P ulse Oximeter] Pulse Rate [Pulse Oximeter] 92 Respiratory Rate 16 Blood Pressure Blood Pressure [Le ft Arm] Blood Pressure [Ri ght Arm] Blood Pressure [Ri ght Upper Arm] 160/72 H Pulse Oximetry 96 93 95 Oxygen Delivery Me thod Room Air 01/03/24 18:32 01/03/24 19:07 01/03/24 19:15 Temperature Pulse Rate 92 86 92 Pulse Rate [Left P ulse Oximeter] Pulse Rate [Pulse Oximeter] Respiratory Rate Blood Pressure 140/66 H Blood Pressure [Le ft Arm] Blood Pressure [Ri ght Arm] Blood Pressure [Ri ght Upper Arm] Pulse Oximetry 94 94 92 Oxygen Delivery Me thod 01/03/24 19:30 01/03/24 19:31 01/03/24 19:51 Temperature Pulse Rate 86 89 82 Pulse Rate [Left P ulse Oximeter] Pulse Rate [Pulse Oximeter] Respiratory Rate Blood Pressure 145/72 H Blood Pressure [Le ft Arm] Blood Pressure [Ri ght Arm] Blood Pressure [Ri ght Upper Arm] Pulse Oximetry 95 93 96 Oxygen Delivery Ar thod 01/03/24 20:00 01/03/24 20:02 01/03/24 20:15 Temperature Pulse Rate 81 80 85 Pulse Rate [Left P ulse Oximeter] Pulse Rate [Pulse Oximeter] Respiratory Rate Blood Pressure 156/64 H Blood Pressure [Le ft Arm] Blood Pressure [Ri ght Arm] Blood Pressure [Ri ght Upper Arm] Pulse Oximetry 93 92 89 Oxygen Delivery Ar thod 01/03/24 20:30 01/03/24 20:32 01/03/24 20:45 Temperature Pulse Rate 83 81 88 Pulse Rate [Left P ulse Oximeter] Pulse Rate [Pulse Oximeter] Respiratory Rate Blood Pressure 154/69 H Blood Pressure [Le ft Arm] Blood Pressure [Ri ght Arm] Blood Pressure [Ri ght Upper Arm] Pulse Oximetry 91 91 96 Oxygen Delivery Ar thod 01/03/24 21:00 01/03/24 21:02 01/03/24 21:15 Temperature Pulse Rate 79 81 78 Pulse Rate [Left P ulse Oximeter] Pulse Rate [Pulse Oximeter] Respiratory Rate Blood Pressure 172/74 H Blood Pressure [Le ft Arm] Blood Pressure [Ri ght Arm] Blood Pressure [Ri ght Upper Arm] Pulse Oximetry 96 95 94 Oxygen Delivery Ar thod 01/03/24 21:42 01/03/24 21:45 01/03/24 22:02 Temperature Pulse Rate 84 89 Pulse Rate [Left P ulse Oximeter] Pulse Rate [Pulse Oximeter] Respiratory Rate Blood Pressure 185/80 H Blood Pressure [Le ft Arm] Blood Pressure [Ri ght Arm] Blood Pressure [Ri ght Upper Arm] Pulse Oximetry 96 95 Oxygen Delivery Ar thod 01/03/24 22:30 01/03/24 22:30 01/03/24 23:00 Temperature 99.7 F H Pulse Rate Pulse Rate [Left P ulse Oximeter] 85 85 Pulse Rate [Pulse Oximeter] Respiratory Rate 20 20 20 Blood Pressure Blood Pressure [Le ft Arm] 150/79 H Blood Pressure [Ri ght Arm] Blood Pressure [Ri ght Upper Arm] Pulse Oximetry 97 97 Oxygen Delivery Me thod Room Air Room Air 01/03/24 23:05 01/04/24 00:08 01/04/24 03:00 Temperature 99.7 F H 98.9 F Pulse Rate Pulse Rate [Left P ulse Oximeter] 71 Pulse Rate [Pulse Oximeter] Respiratory Rate 20 Blood Pressure Blood Pressure [Le ft Arm] 157/72 H Blood Pressure [Ri ght Arm] Blood Pressure [Ri ght Upper Arm] Pulse Oximetry 97 94 Oxygen Delivery Me thod Room Air 01/04/24 07:00 01/04/24 07:00 01/04/24 07:00 Temperature 99.2 F Pulse Rate Pulse Rate [Left P ulse Oximeter] 66 66 Pulse Rate [Pulse Oximeter] Respiratory Rate 18 20 20 Blood Pressure Blood Pressure [Le ft Arm] Blood Pressure [Ri ght Arm] 133/54 L Blood Pressure [Ri ght Upper Arm] Pulse Oximetry 96 96 Oxygen Delivery Me thod Room Air Room Air 01/04/24 11:00 Temperature 98 F Pulse Rate Pulse Rate [Left P ulse Oximeter] 66 Pulse Rate [Pulse Oximeter] Respiratory Rate 18 Blood Pressure Blood Pressure [Le ft Arm] Blood Pressure [Ri ght Arm] 136/58 L Blood Pressure [Ri ght Upper Arm] Pulse Oximetry 98 Oxygen Delivery Me thod Room Air Documenting provider has reviewed patient's vital signs: yes Labs Labs: Laboratory Results - last 24 hr 01/03/24 01/03/24 01/04/24 19:21 20:27 06:06 WBC 10.59 8.36 RBC 3.85 L 3.70 L Hgb 11.8 L 11.4 L Hct 36.5 L 34.9 L MCV 95 94 MCH 31 31 MCHC 32 33 RDW Coeff of Joyce 13.1 13.0 Plt Count 163 150 Neut % (Auto) 79.9 H 69.6 Lymph % (Auto) 7.8 L 15.0 L Rice % (Auto) 10.9 13.4 H Eos % (Auto) 0.8 1.4 Baso % (Auto) 0.2 0.1 Neut # (Auto) 8.50 H 5.82 Lymph # (Auto) 0.80 L 1.30 Rice # (Auto) 1.20 H 1.10 H Eos # (Auto) 0.09 0.12 Baso # (Auto) 0.02 0.01 Abs Immat Gran (auto) 0.04 0.04 Imm/Tot Granulo (auto) 0.4 0.5 Sodium 138 137 Potassium 4.7 4.0 Chloride 106 106 Carbon Dioxide 26 25 Anion Gap 6 L 6 L BUN 29 23 Creatinine 1.3 1.1 Estimated Creat Clear 48.91 57.81 Estimated GFR 55 67 Glucose 114 102 Lactate 1.5 Calcium 9.9 9.7 Troponin I < 0.01 L Urine Color Yellow Urine Appearance Clear Urine pH 6.5 Ur Specific [place] 1.025 Urine Protein Negative Urine Glucose (UA) Negative Urine Ketones Negative Urine Blood Trace-intact A Urine Nitrite Negative Urine Bilirubin Negative Urine Urobilinogen 1.0 Ur Leukocyte Esterase Negative Urine RBC 0-2 Urine WBC 0-2 Ur Squamous Epith Cells None Urine Bacteria None SARS-CoV-2 (PCR) POSITIVE SARS-CoV-2 A Influenza Type A (PCR) Negative PCR FLU A Influenza Type B (PCR) Negative PCR FLU B RSV (PCR) Negative PCR RSV
--- NOTE | 2024-01-04 19:48 | PC.NURSE ---
PT A & O. VSS. Afebrile. Did not note any cough in room with patient. Pt advised their cough is getting better. Able to ambulate with A1, walker, and gait belt. Tolerated a regular diet well and ate 100% of dinner. Drinking fluids.
[2024-01-04] MEDS: ENOXAPARIN 40 MG/0.4 ML INJ SUBCUT (21:07)
[2024-01-05 03:00] VITALS: BP 149/73; PULSE 57; RESP 18; TEMP 36.9; O2SAT 96
--- NOTE | 2024-01-05 06:32 | PC.NURSE ---
End of shift [id number]: Pt has been A&O, afebrile and VSS overnight. He is SBA with gait belt and rolling walker for transfers and ambulation. PIV in left AC is SL and C/D/I. Cont pulse ox showing pt maintaining SpO2 > 90% on RA. Productive cough with thick, clear sputum. Pt has chronic ongoing back pain- he received PRN Tylenol at HS and prefers to sleep on his left side for pain relief. Pt has been incontinent of urine all night. No BM. He utilizes call light appropriately.?
[2024-01-05 08:00] VITALS: RESP 18; O2SAT 93
[2024-01-05 08:06] VITALS: BP 167/82; PULSE 77; RESP 18; TEMP 36.9; O2SAT 93
[2024-01-05] MEDS: NIRMATRELVIR/RITONAVIR DOSEPAK 2 TAB PO (08:31)
[2024-01-05] MEDS: OMEPRAZOLE 20 MG CAPSULE DR PO (08:31)
[2024-01-05] MEDS: FINASTERIDE 5 MG TABLET PO (08:31)
[2024-01-05] MEDS: LOSARTAN POTASSIUM 50 MG TABLET PO (08:31)
[2024-01-05] MEDS: ASPIRIN 81 MG TABLET EC PO (08:31)
[2024-01-05] MEDS: SODIUM CHLORIDE 0.9 % (FLUSH) 10 ML SYRINGE 5 ML IVF (08:40)
[2024-01-05] MEDS: ACETAMINOPHEN 325 MG TABLET 975 MG PO (09:42)
--- NOTE | 2024-01-05 10:05 | PM.DS1 ---
DS: Providers Provider Date Seen: 01/05/24 Date of admission: 01/03/24 22:11 Primary care physician: Not a Local Provider Admitting Clinician: Mellissa Painting MD Attending Physician on discharge: Otilio Kathleen MD Date of Discharge: 01/05/24 DS: Diagnosis Discharge Diagnosis (1) COVID-19: Status: Acute Problem details: Uncertain onset of COVID infection probably 1 to 3 days prior to admission. Not hypoxic. Paxlovid. Hold simvastatin and tamsulosin on Paxlovid and for 5 days afterwards (2) Weakness: Status: Acute Problem details: - Secondary to Covid - PT and OT to evaluate - Lives independently, alone (3) Fall: Status: Acute Problem details: No obvious serious injury. Reports some midthoracic pain today. He tells me this has been chronic prior to his fall. (4) Acute upper back pain: Status: Chronic Problem details: Midthoracic pain is chronic. Chest x-ray showed no obvious compression fracture. (5) CKD (chronic kidney disease): Status: Chronic Problem details: - stage 3, baseline Cr 1.1-1.2 - Patient got IVF in the ER. Recheck Cr in am. (6) Hypertension: Status: Chronic Problem details: - Continue losartan at reduced dose. Resume normal blood pressure medicine when blood pressure improved and eating well. (7) Brain lesion: Status: Acute Problem details: 01/03/24 CT head: lobular soft tissue lesion in the right superior lateral extraconal orbit. Benign and malignant etiologies such as lymphoma are differential considerations. MRI of the brain without and with contrast is recommended to further evaluate the above findings. 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 Otherwise, no definite abnormality to suggest cause for this finding on unenhanced CT. MRI of the brain without and with contrast is recommended to further evaluate the above findings. (9) BPH (benign prostatic hyperplasia): Status: Acute Problem details: Patient had he urinary incontinence during hospital stay. Postvoid residual bladder scan showed 52 mL. (10) Dementia: Status: Acute Problem details: [place] score 14/30 on 01/05/2024 DS: Summary Hospital Course Hospital Course: Aidan Singh is a 83 year old male who lives independently at [address] [facility] apartments and has a history of hypertension, chronic kidney disease stage 3, and hyperlipidemia who felt weak getting out of his car and lowered himself to the ground and was unable to get up. Overnight he did not sleep very well and had a very runny nose. Today he has felt very tired and fatigued, which he attributed to not sleeping well last night. He also started coughing today. He and his brother went to visit their sister who is currently at [facility]. We earlier this afternoon and then he drove himself back home. When he got to the [place] his apartment he felt very weak getting out of the car and started to falls, so he gently lowered himself to the ground. He denies any loss of consciousness the, head or neck trauma. He laid on the pavement for a little while until someone was passing by and he got their attention. He got a liter of IV fluids in the emergency department and his COVID swab was positive. Denies loss of appetite, fever, headache, body aches, sore throat, shortness breath or chest pain. He denies any sick contacts. During hospital stay patient did well. He was treated with Paxlovid which he tolerated well. While on the Paxlovid his pravastatin and tamsulosin were held. These can be restarted 5 days after finishing Paxlovid, January 13. He had no hypoxia during his hospital stay. His strength and appetite improved steadily during his hospital stay and is able to ambulate independently with his walker. [place] 1430. Recommend ems driver safety evaluation. Status at Discharge Functional status at discharge: uses cane/walker Overall status at discharge: patient is progressing back to baseline Time Spent with Patient Time attestation: Total time spent providing and/or coordinating discharge services: Time spent: Greater than 30 minutes Exam Narrative: Exam Narrative: He is alert and appears in no distress. Oriented to his circumstances. Breathing is unlabored. Respirations are clear to auscultation except for a rare basilar crackle. Cardiovascular: S1, S2, regular rate and rhythm. Abdomen: Bowel sounds active. Abdomen is soft without tenderness or mass. Back is examined. He has mild tenderness in his mid to upper thoracic spine without external signs of trauma. Const: Vital Signs, click to edit/add: Vital Signs - 24 hr 01/04/24 11:00 01/04/24 15:00 01/04/24 15:00 Temperature 98 F 98.8 F Pulse Rate [Left P ulse Oximeter] 66 65 Respiratory Rate 18 18 Blood Pressure [Ri ght Arm] 136/58 L 136/61 Pulse Oximetry 98 94 94 Oxygen Delivery Me thod Room Air Room Air 01/04/24 15:00 01/04/24 15:00 01/04/24 19:20 Temperature 98.7 F Pulse Rate [Left P ulse Oximeter] 65 72 Respiratory Rate 18 18 18 Blood Pressure [Ri ght Arm] 178/72 H Pulse Oximetry 94 96 Oxygen Delivery Me thod Room Air Room Air 01/04/24 21:06 01/04/24 23:00 01/04/24 23:00 Temperature 98.7 F Pulse Rate [Left P ulse Oximeter] 62 Respiratory Rate 18 Blood Pressure [Ri ght Arm] Pulse Oximetry 93 Oxygen Delivery Me thod 01/04/24 23:00 01/04/24 23:00 01/05/24 03:00 Temperature 99.6 F 98.4 F Pulse Rate [Left P ulse Oximeter] 62 57 L Respiratory Rate 18 18 18 Blood Pressure [Ri ght Arm] 128/62 149/73 H Pulse Oximetry 93 93 96 Oxygen Delivery Me thod Room Air Room Air Room Air 01/05/24 08:00 01/05/24 08:06 01/05/24 08:06 Temperature 98.4 F Pulse Rate [Left P ulse Oximeter] 77 Respiratory Rate 18 18 Blood Pressure [Ri ght Arm] 167/82 H Pulse Oximetry 93 93 93 Oxygen Delivery Me thod Room Air Room Air Documenting provider has reviewed patient's vital signs: yes DS: Data Imaging Chest x-ray: Radiologist's impression: INDICATION: Shortness of breath and cough. FINDINGS: There is mild cardiac enlargement. The lungs are clear. The pulmonary vasculature and pleural surfaces appear normal. The bony thorax appears intact. IMPRESSION: Mild cardiac enlargement. CT scan - head: Radiologist's impression: INDICATION: Fall. Weakness. TECHNIQUE: CT head without contrast. COMPARISON: None. FINDINGS: There is dilatation of the lateral and 3rd ventricles, consistent with hydrocephalus. No definite dilatation of the 4th ventricle. Mild ill-defined low-attenuation in the periventricular and subcortical white matter. No CT evidence of acute hemorrhage or infarction. No midline shift. No subdural fluid collection. Intracranial atherosclerosis. CSF density in the posterior fossa may represent normal variation or arachnoid cyst. Bone windows show no acute calvarial fracture. Mild mucosal thickening of the maxillary and ethmoid sinuses. Lobular soft tissue in the right superior lateral extraconal orbit measures approximately 21 x 5 mm on image 22 of series 3. IMPRESSION: 1. No acute intracranial hemorrhage or midline shift. 2. 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 Otherwise, no definite abnormality to suggest cause for this finding on unenhanced CT. 3. Lobular soft tissue lesion in the right superior lateral extraconal orbit. Benign and malignant etiologies such as lymphoma are differential considerations. 4. MRI of the brain without and with contrast is recommended to further evaluate the above findings. Dictated by Khalif Boyd MD @ 01/03/2024 7:17:[address] cervical spine: Radiologist's impression: INDICATION: Trauma, fall. Neck pain. TECHNIQUE: CT cervical spine without contrast. COMPARISON: None. FINDINGS: Vertebrae: Straightening of the normal cervical lordosis, which may be due to muscle spasm or positioning. There are no fractures or suspicious bony lesions. Discs and facet joints: There are diffuse degenerative changes in the disc spaces and facet joints. Extraspinal findings: Paraspinous soft tissues are unremarkable. IMPRESSION: 1. No acute fracture or traumatic subluxation of the cervical spine. 2. Multilevel degenerative spondylosis. Discharge Plan Discharge Disposition: Home, Self-Care Date of Admission: 01/03/24 22:11 Attending Provider on Discharge: Georges Kathleen Primary Care Provider: Provider,Not a Local Condition: Improved Anticipated Discharge Date/Time: 01/05/24 11:00 Discharge Medications: New Paxlovid 150-100 mg tablets,dose pack See Rx Instructions .ROUTE .COMPLEX Qty: 20 0RF Rx Instructions: Nirmatrelvir 150 mg with ritonavir 100 mg orally twic daily for 5 days Continued omeprazole 20 mg capsule,delayed release(DR/EC) 20 mg PO DAILY hydrochlorothiazide 25 mg tablet 25 mg PO DAILY losartan 100 mg tablet 100 mg PO DAILY finasteride 5 mg tablet 5 mg PO DAILY aspirin 81 mg capsule 81 mg PO DAILY Held tamsulosin 0.4 mg capsule 0.8 mg PO DAILY Hold Instructions: Resume on 01/14/24. pravastatin 20 mg tablet 20 mg PO DAILY Hold Instructions: Resume on 01/14/24. Discharge Orders: Discharge Order (Routine); Ordered 01/05/24 Ordered By: Georges Kathleen Patient Education: Nirmatrelvir/Ritonavir (By mouth) (Paxlovid), COVID-19 (Coronavirus Disease 2019) (DC), How to Recover from COVID-19 at Home (ED) Additional Instructions: Continue to take Paxlovid, 2 tablets in the foil packets twice a day for 7 more doses. Do not take tamsulosin or pravastatin while taking Paxlovid or for 5 days afterwards. You can restart these medications on January 13. See Karla Cooper PA-C next week for recheck of your COVID. I recommend you have a brain MRI to follow-up on abnormalities found on your brain scan when you came to the hospital. Activity Level: Activity as Tolerated and Use Walker Discharge Diet: Regular Follow Up Appointments: Karla Cooper PA-C [Referring] - 01/14/24 10:30 am ([facility] for follow-up. I recommend you get a brain MRI arranged as an outpatient when you have recovered from your COVID infection.) Provider,Not a Local [Primary Care Provider] - Forms: [employer] Info Instructions
[2024-01-05 11:00] VITALS: BP 131/64; PULSE 66; RESP 16; TEMP 36.9; O2SAT 94
--- NOTE | 2024-01-05 14:33 | PC.NURSE ---
Patient VSS. A & O. Incontinent of urine. Tolerated a regular diet. Ambulated with SBA of 1 with walker. Patient D/C @ 1415 to independent living apartment, via wheelchair, and picked up by car via brother. Discharge instructions and education given to patient by RN. Discharge packet signed by RN and patient. IV removed and intact.
== END 2024-01-05 14:15 | disposition home or self-care (01) ==
LOC: ED 21:00 → MEDSURG 22:13
PROVIDERS: Admitting Provider Family Medicine; Emergency Provider Emergency Medicine; Visit Provider Family Medicine
DX: U07.1 COVID-19 (principal); M62.81 Muscle weakness (generalized); W19.XXXA Unspecified fall, initial encounter; M54.9 Dorsalgia, unspecified; G91.9 Hydrocephalus, unspecified; G93.9 Disorder of brain, unspecified; R05.9 Cough, unspecified; R50.9 Fever, unspecified; R41.0 Disorientation, unspecified; R09.81 Nasal congestion; M54.6 Pain in thoracic spine; G89.29 Other chronic pain; R53.83 Other fatigue; M79.605 Pain in left leg; M79.604 Pain in right leg; F03.90 Unspecified dementia, unspecified severity, without behavioral disturbance, psychotic disturbance, mood disturbance, and anxiety; I12.9 Hypertensive chronic kidney disease with stage 1 through stage 4 chronic kidney disease, or unspecified chronic kidney disease; N18.30 Chronic kidney disease, stage 3 unspecified; E78.5 Hyperlipidemia, unspecified; N40.0 Benign prostatic hyperplasia without lower urinary tract symptoms; K21.9 Gastro-esophageal reflux disease without esophagitis; M17.11 Unilateral primary osteoarthritis, right knee; Z79.82 Long term (current) use of aspirin; Z98.890 Other specified postprocedural states
CPT/HCPCS: 36415; 51798; 70450; 71046; 72125; 80048; 81001; 83605; 84484; 85025; 87040; 87631; 93005; 94761; 96360; 96372; 97116; 97162; 97165; 97530; 97535; 99284; 99285; A9270; G0378; J1650; J7030; J7120

== ENCOUNTER 2025-02-01 13:07 | Outpatient (CLI) | payer MEDICARE, BC, SELFPAY ==
[2025-02-01 13:25] VITALS: BP 142/66; PULSE 69; RESP 16; TEMP 36.9; O2SAT 96
[2025-02-01 15:10] VITALS: BP 172/72; PULSE 69; RESP 16; O2SAT 96
[2025-02-01 15:15] VITALS: BP 156/76; PULSE 53; RESP 16; O2SAT 95
--- NOTE | 2025-02-01 15:36 | PM.PROC ---
Procedure Note Time Seen by Provider: 14:00 Date Seen: 02/01/25 Provider Contact Time: 15:00 Date of procedure: 02/01/25 Will [facility] bill your pro fee for this procedure?: Yes Procedure: CRYONEUROLYSIS TREATMENT REPORT DATE OF PROCEDURE: 02/01/2025 REFERRING PROVIDER: Navi Jarrett TREATMENT PROVIDER: Eyad Terry PREOPERATIVE DIAGNOSIS: left knee osteoarthritis POSTOPERATIVE DIAGNOSIS: left knee osteoarthritis? PROCEDURE: Cryoneurolysis of Multiple Sensory Nerves of the Knee ANESTHESIA: Local INDICATIONS: The patient is a very pleasant 84-year-old male with primary osteoarthritis involving the left knee who presents today for cryoneurolysis of multiple sensory nerves to the knee for severe knee pain.?Patient medical history was reviewed. The risks, benefits, treatment alternatives, and complications were discussed with the patient, including but not limited to bleeding, infection, nerve or tissue damage.?Informed consent was obtained. ? PRE-TREATMENT MOTOR ASSESSMENT/PAIN SCORE: Patient was able to demonstrate intact gross motor function with plantarflexion, dorsiflexion, adduction, abduction, hip flexion, and extension of the lower extremity.?Pre-treatment pain score of 6 out of 10 in the left knee. DESCRIPTION OF PROCEDURE: After obtaining informed consent, the patient was brought back to the treatment room and positioned supine on the table.?The left lower extremity was prepped with Chlorhexadine.?We began the procedure by performing our procedural pause.?Once this was completed and verified to be accurate, I began the procedure by identifying the nerves with the use of bedside ultrasound.?After the nerves were identified, the skin was marked and, using 1% lidocaine plain, the area of the nerves were anesthetized. ? After the anesthetic was administered, the Smart Tip 2190 cryoneurolysis needle was inserted into the treatment sites using ultrasound guidance.?Treatment was then initiated on the left lower extremity with the following nerves treated: superior, superior medial, superior lateral, inferior medial genicular nerves. At the termination of the treatment, the cryoneurolysis needle was removed with the patient's skin cleansed and compression sleeve was applied. Patient tolerated the procedure without any incident or concern.? Patient was then instructed to stand, mobilize the joint, and was examined to ensure gross motor skills were intact. COMPLICATIONS: None POST-TREATMENT PAIN SCORE: 0 out of 10. left knee DISPOSITION: Discharge instructions were given to the patient with education on the post-procedure expectations. Patient was instructed to call the Ortho clinic with any post-procedure concerns or questions.
== END 2025-02-01 15:28 | disposition home or self-care (01) ==
LOC: OP CLINIC 13:08
PROVIDERS: PCP Physician Assistant; Visit Provider Nurse Anesthetist, Certified Registered
DX: M17.12 Unilateral primary osteoarthritis, left knee (principal)
CPT/HCPCS: 64640; 76942; C9809

== ENCOUNTER 2025-02-14 08:41 | Day surgery (SDC) | payer MEDICARE, BC, SELFPAY ==
[2025-02-14] VITALS (25 sets, daily range): BP systolic 109–145; BP diastolic 52–73; PULSE 44–74; RESP 16–28; TEMP 36.4–37.1; O2SAT 90–100; BMI 35.8
[2025-02-14] MEDS: CELECOXIB 200 MG CAPSULE PO (09:59)
[2025-02-14] MEDS: SODIUM CHLORIDE 0.9 % (FLUSH) 10 ML SYRINGE IVF (09:59)
[2025-02-14] MEDS: OXYCODONE (CR) 10 MG TAB.ER.12H PO (09:59)
[2025-02-14] MEDS: LACTATED RINGERS 1000 ML 1,000 ML 100 ML IV ×2 (09:59→13:30)
[2025-02-14] MEDS: ACETAMINOPHEN 500 MG TABLET 1000 MG PO ×3 (09:59→23:24)
[2025-02-14] MEDS: MIDAZOLAM HCL 1 MG/ML inj IVP (10:37)
--- NOTE | 2025-02-14 10:50 | SUR.PREOP ---
Patient stated he has someone come into his independent living place 2x/wk to assist him. They give him a shower and do his dishes. Patient states he does not think he will need additional help after surgery at home. He stated his brother Franky lives in the home place by [facility].
[2025-02-14] MEDS: TRANEXAMIC ACID 100 MG/ML INJ 1000 MG IV (11:35)
--- NOTE | 2025-02-14 13:27 | CRLHL7_ITS ---
For Patients: As a result of the Cures Act, medical imaging exams and procedure reports are released immediately into your electronic medical record. You may view this report before your referring provider. If you have questions, please contact your health care provider. Indication: Postop TKA Technique: Two views left knee Findings/Impression: Hardware from a left total knee arthroplasty is in satisfactory position. Bone alignment is normal. No sign of acute fracture. Postop changes are within normal limits. Dictated by Lm Harrington MD @ 02/14/2025 3:50:52 PM (Electronically Signed)
--- NOTE | 2025-02-14 13:31 | P.ORPRC_ITS ---
Procedure Note Date of procedure: 02/14/25 Procedure: PREOPERATIVE DIAGNOSIS: Left knee osteoarthritis POSTOPERATIVE DIAGNOSIS: Left knee osteoarthritis NAME OF OPERATION: Left total knee arthroplasty SURGEON: Navi Jarrett MD ROUGHER MACHINE OPERATOR: DILLAN Jane ANESTHESIA: Spinal ESTIMATED BLOOD LOSS: 0 mL COMPLICATIONS: None SPECIMENS: None DRAINS: None PREOPERATIVE ANTIBIOTICS: Ancef 2g, antibiotic impregnated cement IMPLANTS: 1. J&J Attune # 10 posterior stabilized femur 2. # 8 fixed-bearing tibia 3. # 10 posterior stabilized, 5 mm fixed-bearing polyethylene 4. 41 patella INDICATIONS: The patient is a 84-year-old with a longstanding history of severe, unrelenting left knee pain secondary to end-stage (grade IV) left knee osteoarthritis. Despite appropriate nonoperative management, including activity modification, anti-inflammatories, iipl-ilg-fzafjsl pain medication, bracing, physical therapy, and injections they continue to have pain and disability. Operative intervention was offered. The risks, benefits and expected outcomes were discussed in detail. These included but were not limited to: Infection, bleeding, injury to blood vessel or nerve, venous thromboembolism. All questions were answered to their satisfaction. Use of an assistant professor in family studies was necessary throughout the case for patient positioning and safety, soft tissue retraction, and closure. A modifier 22 should be added to this case. The patient's weight of 110 kg with a BMI of 36 made the exposure difficult. Additionally, to reduce the risk of aseptic loosening a stemmed tibial component was used. Finally, the knee was quite tight which made exposure very difficult. These factors added time and cost to complete the case. PROCEDURE: Spinal anesthesia was administered. The patient was placed supine on the operating table. The assistant professor in family studies made sure the patient was positioned appropriately. The lower extremity was prepped and draped in the usual sterile fashion. The limb was exsanguinated with the Sonny bandage. The pneumatic tourniquet was inflated to 225mmHg. A standard anterior incision was made with the knee in flexion. Subcutaneous dissection was sharply taken through fascial layer #1. Full-thickness medial and lateral flaps were elevated. The assistant professor in family studies retracted the soft tissues and protected them throughout the case. A standard subvastus approach was made. The patella was subluxed. The infrapatellar fat pad was preserved. The menisci and cruciate ligaments were sharply d?brided. Marginal osteophytes were d?brided with the rongeur. The drill was used to penetrate the femoral canal. The intramedullary femoral guide was placed for a 5-degree valgus cut, removing 10 mm off the distal femur. The saw was used to make the cut. Whitesides line and the trans epicondylar axis were marked. The femoral sizing guide was pinned onto the distal femur. Three degrees of external rotation nicely parallels the transepicondylar axis. Pins were placed for posterior referencing. The four-in-one cutting guide was pinned onto the distal femur. The anterior, posterior, and chamfer cuts were made. The assistant professor in family studies protected the collateral ligaments. The revision trial was placed. The box cuts were made. The drill was used x2. The stemmed, boxed trial was placed and was an excellent fit. Attention was then turned to the proximal tibia. The intramedullary tibial guide was placed for a neutral varus/valgus cut with 3 degrees of posterior slope, removing 2 mm based off the medial tibial surface. The assistant professor in family studies protected the collateral ligaments and the neurovascular bundle. The saw was used to make the cut. Trial components were placed. The knee was nicely balanced in both flexion and extension. The trial components were removed. The tray was placed in appropriate rotation, parallel to our tibial cutting pins. It was pinned by the assistant professor in family studies and the drill x2 was used. The stemmed tibial trial was placed. The punch was used. The tray was removed. The punch was used again. Attention was then turned to the patella. [place] patellar thickness was 27 mm. The lobster claw resection guide was used with the 9.5 mm mio. The saw was used to make the cut. Drill holes were made by the assistant professor in family studies. The trial was placed and was an excellent fit. Cancellous surfaces were irrigated with pulse lavage and thoroughly dried by the assistant professor in family studies. We cemented the tibial component, then the femoral component. We impacted the 5 mm polyethylene onto the tibial tray. The knee was brought into full extension. We then cemented the patellar component. Excessive cement was removed. The cement was allowed to harden. The knee was taken through a range of motion and was found to be nicely balanced in both flexion and extension. The patella tracks centrally. The assistant professor in family studies did a three minute dilute Betadine solution soak. The assistant professor in family studies irrigated the wound with 3 liters of normal saline via pulse lavage. The assistant professor in family studies reapproximated the extensor mechanism with #1 Vicryl in an interrupted sdwrol-do-qqhke fashion. The assistant professor in family studies then ran the extensor mechanism with a #1 PDO Stratafix. The assistant professor in family studies closed the subcutaneous tissues with a 3-0 Stratafix and the skin with a running 3-0 Stratafix in a subcuticular fashion. Glue was used to seal the skin. The assistant professor in family studies placed a dry dressing. Sponge and needle counts were correct x2. The patient tolerated the procedure well. There were no apparent complications. They were carefully transferred to the hospital bed and taken to the postanesthesia care unit in satisfactory condition. PLAN: The patient will be mobilized with physical therapy. Aspirin will be used for DVT prophylaxis. They will be discharged to home once medically appropriate.
--- NOTE | 2025-02-14 13:47 | P.ANES_ITS ---
Anesthesia Charges Start Date/Time Anesthesia Start Date: 02/14/25 Anesthesia Start Time: 11:19 Stop Date/Time Anesthesia Stop Date: 02/14/25 Anesthesia Stop Time: 13:47 Summary Extremes of Age - Over 70 or under 1: CONTROLS DESIGN ENGINEER Coding CPT Codes CPT Codes: ANESTH KNEE ARTHROPLASTY - 11269 ([id number]) P3 - PATIENT W/SEVERE SYS DISEASE, QK - SUCTION WORKER 2-4 CNCRNT ANES PROC, QX - CONTROLS DESIGN ENGINEER SVC W/ MD MED DIRECTION Additional Codes: Summary - Extremes of Age - Over 70 or under 1: CONTROLS DESIGN ENGINEER ([id number])
--- NOTE | 2025-02-14 13:47 | W.ANESCHARGE ---
Anesthesia Charges Start Date/Time Anesthesia Start Date: 02/14/25 Anesthesia Start Time: 11:19 Stop Date/Time Anesthesia Stop Date: 02/14/25 Anesthesia Stop Time: 13:47 Summary Extremes of Age - Over 70 or under 1: TEXTILE CHEMIST Coding CPT Codes CPT Codes: ANESTH KNEE ARTHROPLASTY - 82400 ([id number]) P3 - PATIENT W/SEVERE SYS DISEASE, QK - COMPUTER LAB PARA PROFESSIONAL 2-4 CNCRNT ANES PROC, QX - TEXTILE CHEMIST SVC W/ MD MED DIRECTION Additional Codes: Summary - Extremes of Age - Over 70 or under 1: TEXTILE CHEMIST ([id number])
--- NOTE | 2025-02-14 14:11 | W.ANESCHARGE ---
Anesthesia Charges Start Date/Time Anesthesia Start Date: 02/14/25 Anesthesia Start Time: 11:19 Stop Date/Time Anesthesia Stop Date: 02/14/25 Anesthesia Stop Time: 13:47 Summary Extremes of Age - Over 70 or under 1: MDA Coding CPT Codes CPT Codes: ANESTH KNEE ARTHROPLASTY - 46051 ([id number]) QK - SOLUTION STRATEGIST 2-4 CNCRNT ANES PROC, QX - PLATE ROLLER SVC W/ MD MED DIRECTION, P3 - PATIENT W/SEVERE SYS DISEASE Additional Codes: Summary - Extremes of Age - Over 70 or under 1: MDA ([id number])
--- NOTE | 2025-02-14 14:11 | W.PM.NB ---
Nerve Block Nerve Block Time Seen by Provider: 10:40 Date Seen: 02/14/25 Type of block requested by surgeon for post-operative analgesia: adductor canal Side: left Time out performed: Yes Verification of patient name: Yes Verification of date of : Yes Site marking: site marked Name of person performing procedure: Harrison Continuous monitoring Was continuous monitoring of O2 sat, B/P, quality assurance monitor body, recorded every 15 minutes?: Yes Procedure Checklist: sterile prep, needles and gloves Ultrasound guided. Images saved: Yes Medications given in 5ml increments after negative aspiration: Marcaine %: 0.25 mL: 15 Needle gauge: 20 Precedex (mcg): 25 Patient tolerated procedure well: Yes Block Charges Block Charge (with Pro Fee): Femoral Nerve Use of Ultrasound Machine for Block: Yes- US Guidance/pain block
--- NOTE | 2025-02-14 14:13 | W.PM.NB ---
Nerve Block Nerve Block Time Seen by Provider: 10:40 Date Seen: 02/14/25 Type of block requested by surgeon for post-operative analgesia: geniculars Side: left Time out performed: Yes Verification of patient name: Yes Verification of date of : Yes Site marking: site marked Name of person performing procedure: Harrison Continuous monitoring Was continuous monitoring of O2 sat, B/P, phototypesetting equipment monitor, recorded every 15 minutes?: Yes Procedure Checklist: sterile prep, needles and gloves Ultrasound guided. Images saved: Yes Medications given in 5ml increments after negative aspiration: Marcaine %: 0.25 mL: 9 Needle gauge: 25 Patient tolerated procedure well: Yes Block Charges Block Charge (with Pro Fee): Genicular Nerve Block
--- NOTE | 2025-02-14 14:21 | SUR.PHASEI ---
patient met discharge criteria per anesthesia
--- NOTE | 2025-02-14 14:49 | PM.IMCN1 ---
Date of Consult Consult date: 02/14/25 Requesting Physician: Orthopedics Primary Care Provider: Karla Cooper PA-C Consult Narrative Reason for consult: Medical management of comorbidities Narrative: Aidan Singh is a 84 year old male who presented to the hospital today for an elective left knee replacement with Dr. Jarrett of Orthopedic surgery. There were no surgical or anesthetic complications noted during procedure. Patient's H&P reviewed, PCP is Karla Cooper locally. Past medical history significant for: Essential hypertension, BPH, GERD, hyperlipidemia. Also concern for cognitive impairment from previous hospitalization; patient does not believe he has any cognitive impairment and remains his own decision maker. Postoperative plan: Hopes to discharge to SNF for increased assistance upon discharge. He lives independently at [address], no partner, no children. Review of Systems Status of ROS: Reports: 10 or more systems reviewed and unremarkable except as noted in History and below [facility] Medical History (Updated 02/14/25 @ 15:52 by Kamilah Lincoln MD) BPH (benign prostatic hyperplasia) ?N40.0 - Benign prostatic hyperplasia without lower urinary tract symptoms (ICD-10) COVID-19 ?U07.1 - COVID-19 (ICD-10) Brain lesion ?G93.9 - Disorder of brain, unspecified (ICD-10) Hydrocephalus ?G91.9 - Hydrocephalus, unspecified (ICD-10) Osteoarthritis of left knee ?M17.12 - Unilateral primary osteoarthritis, left knee (ICD-10) Osteoarthritis of right knee ?M17.11 - Unilateral primary osteoarthritis, right knee (ICD-10) History of heart disease ?Z86.79 - Personal history of other diseases of the circulatory system (ICD-10) Dementia ?F03.90 - Unspecified dementia, unspecified severity, without behavioral disturbance, psychotic disturbance, mood disturbance, and anxiety (ICD-10) CKD (chronic kidney disease) ?N18.9 - Chronic kidney disease, unspecified (ICD-10) 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 ?S68.119A - Complete traumatic metacarpophalangeal amputation of unspecified finger, initial encounter (ICD-10) Primary osteoarthritis of right knee ?M17.11 - Unilateral primary osteoarthritis, right knee (ICD-10) GERD (gastroesophageal reflux disease) ?K21.9 - Gastro-esophageal reflux disease without esophagitis (ICD-10) Hypertension ?I10 - Essential (primary) hypertension (ICD-10) Adenomatous colon polyp ?D12.6 - Benign neoplasm of colon, unspecified (ICD-10) Mixed hyperlipidemia ?E78.2 - Mixed hyperlipidemia (ICD-10) 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, unspecified site (ICD-10) Surgical History (Updated 02/14/25 @ 15:12 by Kamilah Lincoln MD) History of left knee replacement (02/14/25) ?Z96.652 - Presence of left artificial knee joint (ICD-10) Hx of colonoscopy ?Z98.890 - Other specified postprocedural states (ICD-10) Family History (Updated 01/03/24 @ 23:25 by Mellissa Painting MD) Sister Asthma Ischemic bowel disease Mother High blood pressure Father Stroke Social History What is your current living situation?: I presently have a place to live Problems where you live: mold Problems where you live details: Pt reports my sink used to have mold under it but they covered it up with linoleum In the past 12 months, utilities in danger of being shut off: no In past 12 months, lack of transportation kept you from medical appts, meetings, work, or getting things needed for daily living: no In the past 12 mos, have been you worried that your food would run out before you had money to buy more?: never true In the past 12 mos, the food you bought just didn't last and you didn't have money to buy more?: never true Highest level of school completed/degree received: 12th grade, no diploma Smoking Status: Never smoker Do you use any of these nicotine containing products: None Second hand tobacco smoke exposure: No How often do you have a drink containing alcohol: never How often do you have six or more drinks on one occasion: Never AUDIT-C Alcohol total score: 0 Non-prescribed substance use: denies use Caffeine: Yes (Coffee) How often does anyone, including family, friends and others, physically hurt you: never How often does anyone, including family, friends and others, insult or talk down to you: never How often does anyone, including family, friends and others, threaten you with harm: never How often does anyone, including family, friends and others, scream or curse at you: never service: Yes Health Related Social Needs: Inadequate housing (Z59.1) Meds Home Medications and Allergies Home Medications ?Medication ?Instructions ?Recorded ?Confirmed ?Type finasteride 5 mg tablet 5 mg PO DAILY 01/03/24 02/14/25 History hydrochlorothiazide 25 mg tablet 25 mg PO DAILY 01/03/24 02/14/25 History losartan 100 mg tablet 100 mg PO DAILY 01/03/24 02/14/25 History omeprazole 20 mg capsule,delayed 20 mg PO DAILY 01/03/24 02/14/25 History release pravastatin 20 mg tablet 20 mg PO HS 01/03/24 02/14/25 History tamsulosin 0.4 mg capsule 0.8 mg PO DAILY 01/03/24 02/14/25 History acetaminophen 325 mg tablet 650 mg PO BID 02/14/25 02/14/25 History acetaminophen 500 mg capsule 500 - 1,000 mg (1 - 2 x 500 mg) PO 02/14/25 Rx Q6H PRN pain #100 caps aspirin 81 mg chewable tablet 81 mg PO BID for DVT prophylaxis 02/14/25 Rx (Aspirin Childrens) 30 days #60 tabs melatonin 3 mg tablet 3 mg PO QHS 02/14/25 02/14/25 History multivitamin (Daily Multi-Vitamin 1 tab PO DAILY 02/14/25 02/14/25 History tablet) oxycodone 5 mg tablet 2.5 - 5 mg (0.5 - 1 x 5 mg) PO 02/14/25 Rx Q4-6H PRN Pain #42 tabs sennosides 8.6 mg tablet (Senna 17.2 mg (2 x 8.6 mg) PO BID PRN 02/14/25 Rx Lax) constipation #100 tabs Allergies Allergy/AdvReac Type Severity Reaction Status Date / Time No Known Drug Allergies Allergy Verified 02/14/25 09:03 Exam Narrative: Exam Narrative: GEN: Alert and oriented, sitting comfortably in bed HEENT: Edentulous, EOMIs bilaterally, no scleral icterus CV: RRR, soft systolic murmur without concerning features R: LCTA bilaterally Ab: Protuberant, no ttp Skin: No concerning skin lesions or rashes on exposed skin Neuro: Nonfocal Psych: Appropriate Const: Vital Signs, click to edit/add: Vital Signs - 24 hr 02/14/25 09:18 02/14/25 10:37 02/14/25 10:46 Temperature 98.6 F Pulse Rate 64 53 L 48 L Pulse Rate [Left P ulse Oximeter] Respiratory Rate 16 16 18 Blood Pressure 140/60 H 138/70 132/58 L Blood Pressure [Ri ght Arm] Pulse Oximetry 96 96 99 Oxygen Delivery Me thod Room Air Oxygen Flow Rate 02/14/25 11:00 02/14/25 11:07 02/14/25 11:10 Temperature Pulse Rate 49 L 45 L 47 L Pulse Rate [Left P ulse Oximeter] Respiratory Rate 18 18 18 Blood Pressure 118/56 L 115/53 L 120/56 L Blood Pressure [Ri ght Arm] Pulse Oximetry 100 97 97 Oxygen Delivery Me thod Oxygen Flow Rate 02/14/25 11:15 02/14/25 13:42 02/14/25 13:45 Temperature 98.8 F 98.8 F Pulse Rate 44 L 52 L 51 L Pulse Rate [Left P ulse Oximeter] Respiratory Rate 18 28 H 26 H Blood Pressure 118/56 L 136/62 128/59 L Blood Pressure [Ri ght Arm] Pulse Oximetry 98 94 100 Oxygen Delivery Me thod OxyMask OxyMask Oxygen Flow Rate 6 6 02/14/25 13:50 02/14/25 13:55 02/14/25 14:00 Temperature 98.8 F 98.8 F 98.8 F Pulse Rate 50 L 49 L 50 L Pulse Rate [Left P ulse Oximeter] Respiratory Rate 25 H 25 H 22 Blood Pressure 118/62 123/59 L 120/54 L Blood Pressure [Ri ght Arm] Pulse Oximetry 100 100 90 Oxygen Delivery Me thod OxyMask OxyMask Room Air Oxygen Flow Rate 6 6 02/14/25 14:05 02/14/25 14:10 02/14/25 14:25 Temperature 98.8 F 98.8 F 97.5 F L Pulse Rate 50 L 50 L Pulse Rate [Left P ulse Oximeter] 51 L Respiratory Rate 24 19 16 Blood Pressure 116/56 L 117/55 L Blood Pressure [Ri ght Arm] 109/53 L Pulse Oximetry 93 93 92 Oxygen Delivery Me thod Room Air Room Air Room Air Oxygen Flow Rate Assessment and Plan Assessment and plan (1) History of left knee replacement: Problem comment: - Left total knee arthroplasty. Dr. Jarrett, 02/14/25 Status: Acute (2) CKD (chronic kidney disease): Problem comment: - stage 3, baseline Cr 1.1-1.2 - recheck creatinine POD 1 Status: Chronic (3) Hypertension: Problem comment: - on Losartan and HCTZ as an outpatient Status: Chronic (4) BPH (benign prostatic hyperplasia): Problem comment: - on Tamsulosin and Finasteride, monitor postoperatively for urinary retention Status: Acute Plan - pain management and prophylaxis per orthopedic surgery team - continue home medications for comorbidities - anticipate routine postoperative course and discharge to SNF
--- NOTE | 2025-02-14 15:28 | PC.SOCIAL ---
Addendum entered by SHAYY Pendleton 02/14/25 15:50: Discharge planning/addition to below note: lubrication worker explained to the pt's brother that with the type of surgery the pt had most pt's only stay in the hospital for one night, which would be why the pt would need to private pay. Social work to follow-up as needed. Original Note: Discharge planning: lubrication worker met with the pt briefly today after surgery and he stated that he wanted to go to [facility] after his hospital stay and he also stated that he lives on the [facility] in the [facility]. lubrication worker also spoke to pt's brother, Franky, who confirmed that the pt would like to go to [facility] after his hospital stay. lubrication worker explained that pt's insurance will only cover a short-term rehab stay if the pt receives three nights of an inpatient hospital stay. Pt's brother seemed to understand this and stated that the pt will be able to private pay. This medical social consultant explained to Franky that [facility] usually requires a down payment of $10,000.00 for private pay patients, which Franky said Aidan should be able to cover/pay. lubrication worker is sending the pt's initial information to Tosin at [facility] to start reviewing, but this worker does not have PT/OT notes yet. Social work to follow-up as needed.
[2025-02-14] MEDS: CEFAZOLIN 2 GM in 0.9 % SODIUM CHLORIDE Mini-bag 100 ML IVPB (17:31)
--- NOTE | 2025-02-14 18:34 | PC.NURSE ---
End of Shift Note: Patient arrived from PACU around 1430. When he first arrived he appears to be alert and orientated. But then every time I have entered his room have had to reorientated him to use of his call light as he appears to not remember the instructions he had been given previously on the use of this. He is tolerating his diet. Has had no complaints of pain and vitals have been stable. Will continue to monitor until next shift arrives and report has been given.
[2025-02-14] MEDS: ASPIRIN 81 MG TABLET EC PO (20:54)
[2025-02-14] MEDS: SENNOSIDES 1 TAB TABLET 2 TAB PO (20:54)
[2025-02-14] MEDS: PRAVASTATIN SODIUM 20 MG TABLET PO (20:54)
[2025-02-14] MEDS: MELATONIN 3 MG TABLET PO (20:54)
[2025-02-15] MEDS: CEFAZOLIN 2 GM in 0.9 % SODIUM CHLORIDE Mini-bag 100 ML IVPB (01:47)
[2025-02-15 03:00] VITALS: BP 136/55; PULSE 72; RESP 18; TEMP 37.1; O2SAT 92
[2025-02-15] MEDS: lidocaine HCL 2 % JELLY (TOP) STERILE 6 ML UR (04:31)
--- NOTE | 2025-02-15 05:21 | PC.NURSE ---
Pt noted to have bladder scan of 474 mL when assessed this morning. Straight cath attempted x 3 (3 different nurses attempted) with no success and small amount of blood noted from straight cath. Two different style catheters were used including coude tip though pt unable to have bladder emptied. Pt denies bladder pain when asked. He states he feels the urge to urinate though unable to urinate. Pharmacy District Manager called Kenny to provide update to MD, awaiting call back at this time.
[2025-02-15] MEDS: ACETAMINOPHEN 500 MG TABLET 1000 MG PO ×2 (05:50→11:12)
[2025-02-15] MEDS: OMEPRAZOLE 20 MG CAPSULE DR PO (06:20)
[2025-02-15 06:36] LABS: Hematocrit* 31.2 % (37.0-53.0); Hemoglobin* 10.5 gm/dL (13.5-17.5); Immature Granulocytes Abs Auto 0.02 K/uL (0.00-0.30); Immature Granulocytes Pct Auto 0.2 %; Mean Corpuscular HGB Conc 34 gm/dL (32-36); Mean Corpuscular Hemoglobin 32 pg (26-34); Mean Corpuscular Volume 95 fL (80-100); RDW Coefficient of Variation % 12.8 % (11.5-15.5); Red Blood Count* 3.27 m/uL (4.30-5.90); White Blood Count* 9.68 K/uL (4.50-11.00)
[2025-02-15 06:54] LABS: Chloride* 102 mmol/L (96-114); Potassium* 4.7 mmol/L (3.6-5.1); Sodium* 134 mmol/L (135-149)
[2025-02-15 06:57] LABS: Anion Gap 7 mEq/L (7-15); Blood Urea Nitrogen* 35 mg/dL (7-30); Calcium* 9.9 mg/dL (8.4-10.6); Carbon Dioxide* 25 mmol/L (20-32); Creatinine* 1.2 mg/dL (0.5-1.5); Est. Creatinine Clearance* 47.46; Estimated Glomerular Filt Rate 60 ml/min; Glucose* 127 mg/dL (60-115)
--- NOTE | 2025-02-15 07:01 | PC.NURSE ---
End of Shift Note 256? ? Patient has been very pleasant and cooperative throughout the shift. LKA. VSS. Assist of 2+ with gait belt and walker. Tolerates pivoting to commode/bed fairly.?Hx?of BPH, patient had an incontinent episode last evening and has?no?been able to?void since. Bladder scanned,?3?attempts at straight catheterization without result.?MD notified. Recommendation?by MD?to wait 1-2?hrs?and attempt to straight?cath?again. Patient states he has ?chronic back and neck pain?.?He does not tolerate to be in a full supine position.?Bed alarm on and call light within reach. ?Intermittent cognitive impairment.?
[2025-02-15 07:04] LABS: Lymphocytes Absolute Auto 1.20 K/uL (0.90-2.90)
[2025-02-15 07:05] LABS: Slide Review Reflex No
[2025-02-15] MEDS: TAMSULOSIN HCL 0.4 MG CAPSULE 0.8 MG PO (08:00)
--- NOTE | 2025-02-15 08:00 | P.ORPN_ITS ---
Subjective Subjective Time Seen by Provider: 07:30 Date Seen: 02/15/25 Principal diagnosis: Status post left knee replacement Interval history: Aidan has had urinary retention since surgery. Multiple tries inserting the catheter. He states currently that he may have some leaking. He feels he needs to have a bowel movement which he feels will help him to urinate. Left knee is comfortable. Ortho Exam Narrative Exam Narrative: Alert and oriented x3. Patient is in no acute distress. Converses without labored breathing. Hearing is grossly intact. Ambulates with a walker. Claudia and I assisted him to the restroom. The left knee is moving well. The non operative right leg appears weaker and trails behind the left. He is encouraged to lift the right leg in movement. He was able to ambulate into the restroom. Examination of the left knee shows medial ecchymosis. Small hematoma anterior knee. Dressing is in place. Edges of the dressing are not adhering well. This is pressed down all around the dressing and is currently sealed. Calves are soft. Left calf is tender initially, however after massaging the calf the tende rness disappeared. CMS intact left lower extremity. Right calf soft and nontender. He is able to swing his leg over to the edge of the bed on his own accord, however this took effort in time. He appears to have generalized upper body and lower body weakness. Const Vital Signs, click to edit/add: Vital Signs - 24 hr 02/14/25 09:18 02/14/25 10:37 02/14/25 10:46 Temperature 98.6 F Pulse Rate 64 53 L 48 L Pulse Rate [Left Pulse Oximeter] Respiratory Rate 16 16 18 Blood Pressure 140/60 H 138/70 132/58 L Blood Pressure [Right Arm] Pulse Oximetry 96 96 99 Oxygen Delivery Method Room Air Oxygen Flow Rate 02/14/25 11:00 02/14/25 11:07 02/14/25 11:10 Temperature Pulse Rate 49 L 45 L 47 L Pulse Rate [Left Pulse Oximeter] Respiratory Rate 18 18 18 Blood Pressure 118/56 L 115/53 L 120/56 L Blood Pressure [Right Arm] Pulse Oximetry 100 97 97 Oxygen Delivery Method Oxygen Flow Rate 02/14/25 11:15 02/14/25 13:42 02/14/25 13:45 Temperature 98.8 F 98.8 F Pulse Rate 44 L 52 L 51 L Pulse Rate [Left Pulse Oximeter] Respiratory Rate 18 28 H 26 H Blood Pressure 118/56 L 136/62 128/59 L Blood Pressure [Right Arm] Pulse Oximetry 98 94 100 Oxygen Delivery Method OxyMask OxyMask Oxygen Flow Rate 6 6 02/14/25 13:50 02/14/25 13:55 02/14/25 14:00 Temperature 98.8 F 98.8 F 98.8 F Pulse Rate 50 L 49 L 50 L Pulse Rate [Left Pulse Oximeter] Respiratory Rate 25 H 25 H 22 Blood Pressure 118/62 123/59 L 120/54 L Blood Pressure [Right Arm] Pulse Oximetry 100 100 90 Oxygen Delivery Method OxyMask OxyMask Room Air Oxygen Flow Rate 6 6 02/14/25 14:05 02/14/25 14:10 02/14/25 14:25 Temperature 98.8 F 98.8 F 97.5 F L Pulse Rate 50 L 50 L Pulse Rate [Left Pulse Oximeter] 51 L Respiratory Rate 24 19 16 Blood Pressure 116/56 L 117/55 L Blood Pressure [Right Arm] 109/53 L Pulse Oximetry 93 93 92 Oxygen Delivery Method Room Air Room Air Room Air Oxygen Flow Rate 02/14/25 14:30 02/14/25 14:45 02/14/25 15:00 Temperature 97.5 F L 97.5 F L Pulse Rate Pulse Rate [Left Pulse Oximeter] 50 L 54 L Respiratory Rate 16 18 16 Blood Pressure Blood Pressure [Right Arm] 113/52 L 119/53 L Pulse Oximetry 93 92 92 Oxygen Delivery Method Room Air Room Air Room Air Oxygen Flow Rate 02/14/25 15:00 02/14/25 15:30 02/14/25 16:00 Temperature 97.5 F L 97.5 F L 97.5 F L Pulse Rate Pulse Rate [Left Pulse Oximeter] 57 L 73 66 Respiratory Rate 18 18 18 Blood Pressure Blood Pressure [Right Arm] 123/53 L 127/57 L 128/67 Pulse Oximetry 93 93 94 Oxygen Delivery Method Room Air Room Air Room Air Oxygen Flow Rate 02/14/25 17:00 02/14/25 18:00 02/14/25 19:00 Temperature 97.5 F L 97.7 F 97.7 F Pulse Rate Pulse Rate [Left Pulse Oximeter] 67 74 68 Respiratory Rate 18 16 20 Blood Pressure Blood Pressure [Right Arm] 133/54 L 145/55 H 136/73 Pulse Oximetry 96 94 97 Oxygen Delivery Method Room Air Room Air Room Air Oxygen Flow Rate 02/14/25 20:00 02/14/25 23:00 02/14/25 23:00 Temperature 98.2 F 97.9 F Pulse Rate Pulse Rate [Left Pulse Oximeter] 69 64 Respiratory Rate 18 18 Blood Pressure Blood Pressure [Right Arm] 144/66 H 134/58 L Pulse Oximetry 95 92 92 Oxygen Delivery Method Room Air Room Air Room Air Oxygen Flow Rate 02/14/25 23:00 02/15/25 03:00 Temperature 98.7 F Pulse Rate Pulse Rate [Left Pulse Oximeter] 64 72 Respiratory Rate 18 18 Blood Pressure Blood Pressure [Right Arm] 136/55 L Pulse Oximetry 92 Oxygen Delivery Method Room Air Oxygen Flow Rate Assessment and Plan Assessment and plan (1) History of left knee replacement: Problem details: - Left total knee arthroplasty. Dr. Jarrett, 02/14/25 Status: Acute Assessment and Plan: Plan for discharge is to a fdc facility when he meets discharge criteria. DVT prophylaxis includes aspirin 81 mg twice daily x1 month, Compression stockings as needed for swelling. Frequent ambulation, every hour throughout the day. Remove dressing in 2 week. Observe wound and phone Orthopedics with any questions or concerns Return to clinic in 1-2 weeks for a wound check as scheduled Return to clinic in 6 weeks with surgeon Minimize narcotic use. Wean off and discontinue soon as possible. Activities as tolerated. No strenuous activity. physical therapy as scheduled. Ice and elevate the operative extremity. No restriction on ice.
[2025-02-15 08:03] VITALS: BP 136/59; PULSE 73; RESP 18; TEMP 37.4; O2SAT 93
[2025-02-15] MEDS: ASPIRIN 81 MG TABLET EC PO (09:12)
[2025-02-15] MEDS: SENNOSIDES 1 TAB TABLET 2 TAB PO (09:12)
[2025-02-15] MEDS: FINASTERIDE 5 MG TABLET PO (09:12)
[2025-02-15] MEDS: lidocaine HCL 2 % JELLY (TOP) STERILE 6 ML TOPICAL (09:23)
[2025-02-15 12:10] VITALS: BP 135/59; PULSE 73; RESP 18; TEMP 36.8; O2SAT 94
--- NOTE | 2025-02-15 12:50 | P.DS_ITS ---
DS: Providers Provider Date Seen: 02/15/25 Primary care physician: Karla Cooper PA-C Consults: 02/14/25 14:25 Consult to Occupational Therapy [CONS] Routine Comment: See nursing Activity Order Reason(s) for OT Consult:: Evaluate and Treat Any Restrictions?:: No Restrictions Consult to Physical Therapy [CONS] Routine Comment: Ambulate in the beltran today. Reason(s) for PT Consult:: Evaluate and Treat Any Restrictions?:: No Restrictions Consult to Physician [CONS] Routine Comment: Consulting Provider: Hospitalists Has provider been notified: No Consult to Auto Body Painter [CONS] Routine Comment: Reason for Consult:: Discharge Planning Needs Attending Physician on discharge: Navi Jarrett MD DS: Diagnosis Discharge Diagnosis (1) History of left knee replacement: Status: Acute Problem details: - Left total knee arthroplasty. Dr. Jarrett, 02/14/25 (2) Urinary retention: Status: Acute Problem details: acute on chronic Sent pt home w/ foly cath in until f/up w/ urology (3) CKD (chronic kidney disease): Status: Chronic Problem details: - stage 3, baseline Cr 1.1-1.2 - recheck creatinine POD 1 (4) Hypertension: Status: Chronic Problem details: - on Losartan and HCTZ as an outpatient (5) BPH (benign prostatic hyperplasia): Status: Acute Problem details: - on Tamsulosin and Finasteride, monitor postoperatively for urinary retention DS: Summary Hospital Course Hospital Course: pt admitted for an elective knee replacement. post-op pt c/o urinary retention that is acute on chronic. pt was started on tamsulosin 0.8 mg qd and a urinary cath was inserted. pt Sent for rehab at a SNF w/ foly cath in until f/up w/ urology. Status at Discharge Functional status at discharge: uses cane/walker Overall status at discharge: patient is progressing back to baseline Time Spent with Patient Time attestation: Total time spent providing and/or coordinating discharge services: Exam Narrative: Exam Narrative: Physical exam GENERAL: Comfortable, no acute distress. HEAD AND NECK: Atraumatic, normocephalic CARDIOVASCULAR: RRR. Normal S1, S2. No murmurs. RESPIRATORY: Clear to auscultation B/L. Good air entry B/L. No wheezes or rhonchi. NEUROLOGY: Alert, awake, oriented X 3. Normal speech. PSYCH: Normal mood, normal affect. Const: Vital Signs, click to edit/add: Vital Signs - 24 hr 02/14/25 13:42 02/14/25 13:45 02/14/25 13:50 Temperature 98.8 F 98.8 F 98.8 F Pulse Rate 52 L 51 L 50 L Pulse Rate [Left P ulse Oximeter] Respiratory Rate 28 H 26 H 25 H Blood Pressure 136/62 128/59 L 118/62 Blood Pressure [Ri ght Arm] Pulse Oximetry 94 100 100 Oxygen Delivery Me thod OxyMask OxyMask OxyMask Oxygen Flow Rate 6 6 6 02/14/25 13:55 02/14/25 14:00 02/14/25 14:05 Temperature 98.8 F 98.8 F 98.8 F Pulse Rate 49 L 50 L 50 L Pulse Rate [Left P ulse Oximeter] Respiratory Rate 25 H 22 24 Blood Pressure 123/59 L 120/54 L 116/56 L Blood Pressure [Ri ght Arm] Pulse Oximetry 100 90 93 Oxygen Delivery Me thod OxyMask Room Air Room Air Oxygen Flow Rate 6 02/14/25 14:10 02/14/25 14:25 02/14/25 14:30 Temperature 98.8 F 97.5 F L 97.5 F L Pulse Rate 50 L Pulse Rate [Left P ulse Oximeter] 51 L 50 L Respiratory Rate 19 16 16 Blood Pressure 117/55 L Blood Pressure [Ri ght Arm] 109/53 L 113/52 L Pulse Oximetry 93 92 93 Oxygen Delivery Me thod Room Air Room Air Room Air Oxygen Flow Rate 02/14/25 14:45 02/14/25 15:00 02/14/25 15:00 Temperature 97.5 F L 97.5 F L Pulse Rate Pulse Rate [Left P ulse Oximeter] 54 L 57 L Respiratory Rate 18 16 18 Blood Pressure Blood Pressure [Ri ght Arm] 119/53 L 123/53 L Pulse Oximetry 92 92 93 Oxygen Delivery Me thod Room Air Room Air Room Air Oxygen Flow Rate 02/14/25 15:30 02/14/25 16:00 02/14/25 17:00 Temperature 97.5 F L 97.5 F L 97.5 F L Pulse Rate Pulse Rate [Left P ulse Oximeter] 73 66 67 Respiratory Rate 18 18 18 Blood Pressure Blood Pressure [Ri ght Arm] 127/57 L 128/67 133/54 L Pulse Oximetry 93 94 96 Oxygen Delivery Me thod Room Air Room Air Room Air Oxygen Flow Rate 02/14/25 18:00 02/14/25 19:00 02/14/25 20:00 Temperature 97.7 F 97.7 F 98.2 F Pulse Rate Pulse Rate [Left P ulse Oximeter] 74 68 69 Respiratory Rate 16 20 18 Blood Pressure Blood Pressure [Ri ght Arm] 145/55 H 136/73 144/66 H Pulse Oximetry 94 97 95 Oxygen Delivery Me thod Room Air Room Air Room Air Oxygen Flow Rate 02/14/25 23:00 02/14/25 23:00 02/14/25 23:00 Temperature 97.9 F Pulse Rate Pulse Rate [Left P ulse Oximeter] 64 64 Respiratory Rate 18 18 Blood Pressure Blood Pressure [Ri ght Arm] 134/58 L Pulse Oximetry 92 92 Oxygen Delivery Sc thod Room Air Room Air Oxygen Flow Rate 02/15/25 03:00 02/15/25 08:03 02/15/25 08:03 Temperature 98.7 F 99.4 F Pulse Rate Pulse Rate [Left P ulse Oximeter] 72 73 73 Respiratory Rate 18 18 18 Blood Pressure Blood Pressure [Ri ght Arm] 136/55 L 136/59 L Pulse Oximetry 92 93 Oxygen Delivery Me thod Room Air Room Air Oxygen Flow Rate 02/15/25 08:03 02/15/25 12:10 Temperature 98.3 F Pulse Rate Pulse Rate [Left P ulse Oximeter] 73 Respiratory Rate 18 18 Blood Pressure Blood Pressure [Ri ght Arm] 135/59 L Pulse Oximetry 93 94 Oxygen Delivery Sc thod Room Air Room Air Oxygen Flow Rate DS: Data Data Completed and Pending Labs on day of discharge: Labs from last 24 hours 02/15/25 05:54 WBC 9.68 RBC 3.27 L Hgb 10.5 L Hct 31.2 L MCV 95 MCH 32 MCHC 34 RDW Coeff of Joyce 12.8 Plt Count 224 Neut % (Auto) 74.5 H Lymph % (Auto) 12.0 L [place] % (Auto) 13.1 H Eos % (Auto) 0.2 Baso % (Auto) 0.0 Neut # (Auto) 7.20 H Lymph # (Auto) 1.20 [place] # (Auto) 1.30 H Eos # (Auto) 0.02 Baso # (Auto) 0.00 Abs Immat Gran (auto) 0.02 Imm/Tot Granulo (auto) 0.2 Sodium 134 L Potassium 4.7 Chloride 102 Carbon Dioxide 25 Anion Gap 7 BUN 35 H Creatinine 1.2 Estimated Creat Clear 47.46 Estimated GFR 60 Glucose 127 H Calcium 9.9 Discharge Plan Discharge Disposition: er [facility] Attending Physician on Discharge: Mary Gomez Consulting Providers: Mary Gomez; Kamilah Lincoln; Owen Coto; Freedom Bartlett; Jaciel Kelsey; Cora Mohan; Myra Fofana; Amanda Ramos; Fidencio Hare; Christiano Jaeger; Mellissa Painting; Baldomero Kaur; Georges Kathleen; Soraya Gallardo; Alfred Wheeler; Billy Sanford; Kristie Garrido; Eliecer Prescott; Kianna Reveles; Tri Mays V; Martha Jimenez; Jose A Vargas; Rylee Lindsay; Melav Woodson; Adalgisa Tavera; Hua Prakash; Cuca Brooks; Darryl Brooks; Cruz Naidu; Matthew Weeks; Giancarlo Eastman; Nirav Ward; Mickie Ralph; Ford Caal; Mikayla Mrash; Darci Mercedes Primary Care Provider: Karla Cooper Discharging Surgeon: Navi Jarrett Follow-Up Appointment: 03/01/25 10:00 [facility] [place] Anel Arizmendi, [facility] Prescriptions: New sennosides [Senna Lax] 8.6 mg Tablet 17.2 mg PO BID PRN (Reason: constipation) Qty: 100 0RF aspirin [Aspirin Childrens] 81 mg tablet,chewable 81 mg PO BID 30 Days Qty: 60 0RF acetaminophen 500 mg capsule 500 - 1,000 mg PO Q6H MDD 4000mg per day PRN (Reason: pain) Qty: 100 0RF oxycodone 5 mg Tablet 2.5 - 5 mg PO Q4-6H MDD 6 tabs per day PRN (Reason: Pain) Qty: 42 0RF Rx Instructions: Minimize. Discontinue as soon as possible Continued tamsulosin 0.4 mg capsule 0.8 mg PO DAILY omeprazole 20 mg capsule,delayed release(DR/EC) 20 mg PO DAILY pravastatin 20 mg tablet 20 mg PO HS hydrochlorothiazide 25 mg tablet 25 mg PO DAILY losartan 100 mg tablet 100 mg PO DAILY finasteride 5 mg tablet 5 mg PO DAILY melatonin 3 mg tablet 3 mg PO QHS multivitamin [Daily Multi-Vitamin] Tablet 1 tab PO DAILY Discontinued acetaminophen 325 mg tablet 650 mg PO BID Activity Level: Activity as Tolerated and No strenuous activity Activity Detail: Keep dressing on. This will be removed in clinic at your post operative appointment. Dressing is waterproof. May shower. Notify orthopedics if your dressing becomes compromised and gets saturated in shower. Attend physical therapy. Ice and elevate operative extremity without restriction. Swelling and bruising will worsen within the first week. When swelling occurs, elevate the extremity above heart level several times a day and gently massage/pull soft tissue swelling toward hip. This allows gravity to assist in eliminating the swelling/edema. Wear compression stockings/ramses bandages as needed for swelling. Ambulate frequently throughout the day. If you drive, Do not drive while taking narcotic pain medication. Do not drink alcohol while taking narcotic pain medication. May drive when safe to do so and have full function of the extremities, this may take 6 weeks or more. Notify Orthopedics with any questions or concerns. ( phone: [phone]) Discharge Diet: Heart Healthy (2 gm sodium, low fat) Additional Instructions: -you had urinary retention after your surgery and we inserted a urinary catheter. Please keep the catheter in until you follow-up with a urologist. -you need to follow-up with primary care physician within 5-7 days and discussed with them the urinary retention issue. -orthopedic doctor prescribed aspirin twice a day for you to prevent blood clots (deep vein thrombosis, pulmonary embolism), if you notice any bleeding from your stomach like vomiting blood or having black stools or blood in the stool you need to go to urgent care. Forms: Patient Belongings Follow-up: Karla Cooper PA-C [Primary Care Provider, Family Practice] Anel Kline PA-C [Physician Sewer Line Photo Inspector, Orthopedics] - 03/01/25 10:00 am Referral Note: [facility] for follow-up. Discharge Orders: Discharge Order (Routine); Ordered 02/15/25 Ordered By: Mary Gomez Admit to: SNF Discharge Potential: Good Length of Stay: <30 days Can use facility standing orders?: Yes Code Status: Full Code Rehab Potential: Good Therapy: Physical Therapy and Occupational Therapy Therapy Orders: Evaluate and Treat Oxygen: No Urinary Catheter: Yes
--- NOTE | 2025-02-15 13:08 | PC.SOCIAL ---
Discharge planning: Met with pt who continues to request short term rehab placement at [facility] and is aware and agrees with this being a private pay stay. Secure emailed information to [facility] and received call back confirming admission today. Met with pt and brothers in room regarding d/c plan. Family does not feel they are able transport pt to the facility and are requesting non-emergency ambulance transport. Pt is aware and agrees to the private pay cost of $110 for this service. PAS submitted and all discharge orders and information were secure emailed to [facility] who are aware and agree to admit today at about 2:30.
--- NOTE | 2025-02-15 13:39 | PC.NURSE ---
Nurse to Nurse report given to Delmar at [facility].
--- NOTE | 2025-02-15 15:20 | PC.NURSE ---
Discharge: Patient pleasant and cooperative, with some slight cognitive delay/dementia. Patient vitally stable, lungs clear, BS WNL, IV removed, catheter intact. Patient left knee dressing C/D/I, pain is rated 2-3/10, only schedule tylenol given and active ice used. Patient tolerating regular diet, connor inserted this shift, intact and draining. Connor was left in place to [facility]. Patient 1/assist walker. Patient signed belongings sheet and discharge form, without any further questions. Patient left by EMS to [facility] at 1407, his brother took with them his belongings.
== END 2025-02-15 14:07 ==
LOC: OR 08:42 → MEDSURG 08:43
PROVIDERS: Family Medicine; PCP Physician Assistant; Visit Provider Orthopaedic Surgery
PROC: (CPT 27447; principal; 2025-02-14 10:15)
DX: M17.12 Unilateral primary osteoarthritis, left knee (principal); N40.1 Benign prostatic hyperplasia with lower urinary tract symptoms; R33.8 Other retention of urine; R53.1 Weakness; G89.18 Other acute postprocedural pain; I12.9 Hypertensive chronic kidney disease with stage 1 through stage 4 chronic kidney disease, or unspecified chronic kidney disease; N18.31 Chronic kidney disease, stage 3a; F03.90 Unspecified dementia, unspecified severity, without behavioral disturbance, psychotic disturbance, mood disturbance, and anxiety; Z79.82 Long term (current) use of aspirin; Z59.10 Inadequate housing, unspecified; K21.9 Gastro-esophageal reflux disease without esophagitis; E78.2 Mixed hyperlipidemia
CPT/HCPCS: 27447; 01402; 36415; 51702; 51798; 64447; 64454; 73560; 76942; 80048; 85025; 97110; 97116; 97161; 97165; 97530; 97535; 99100; A9270; C1776; J0330; J0665; J0690; J1100; J2250; J2405; J2704; J2710; J3010; J3475; J3490; J7120

== ENCOUNTER 2025-02-15 14:10 | Outpatient (CLI) | payer MEDICARE, BC, SELFPAY | END 2025-02-15 14:11 | disposition home or self-care (01) | LOC: AMB 02-20 16:26 | PROVIDERS: PCP Physician Assistant; Visit Provider Family Medicine | DX: M17.12 Unilateral primary osteoarthritis, left knee (principal); R33.9 Retention of urine, unspecified; Z96.652 Presence of left artificial knee joint; F03.90 Unspecified dementia, unspecified severity, without behavioral disturbance, psychotic disturbance, mood disturbance, and anxiety | CPT/HCPCS: A0425; A0428 ==